=== PATIENT | female | born 1935 | race Two or more races ===

== ENCOUNTER 2019-07-04 21:36 | Inpatient (IN) | payer MEDICARE ==
[~2019-07-04] VITALS: Ht 152.4 cm; Wt 76.9 kg
--- NOTE | 2019-07-04 23:45 | NUR ---
ADMISSION NOTE PATIENT ARRIVED VIA TRANSPORT FROM [facility] 139 REPORT RECIEVED FROM MARY EMT. PATIENT ADMITTED TO 317 BED ONE FOR DX SHINGLES MED SURGE STATUS. REPORT RECIEVED AROUND 10 PM FROM YOLANDA MORATAYA FROM [facility]. PATIENT WAS HAVING LEFT FOOT PAIN FOR 3 DAYS AND WAS UNABLE TO AMBULATE SO SHE WAS BROUGHT TO ER BY SON. PT ALERT AND ORIENTED X3. REPORTS SHE HAS SEVERE PAIN TO LEFT FOOT WHEN TRYING MOVING IT BUT WHILE AT REST PAIN/DISCOMFORT IS TOLERABLE. ADMISSION ASSESSMENT STARTED. PATIENT ORIENTED TO ROOM. CALL LIGHT GIVEN PT VERBALIZED UNDERSTANDING TO CALL FOR ASSISTANCE NEEDED. BED DOWN LOCKED SRX2 BED ALARM ACTIVATED. CONTACT AND AIRBORNE PRECAUTIONS IN PLACE FOR SHINGLES PER PROTOCOL. SHINGLES LIKE RASH ONLY SEEN TO LEFT LOWER EXTREMITY PHOTOS TAKEN AND PLACED IN CHART.
[2019-07-05] MEDS ORDERED: SITA1TAB6 PO (00:47)
[2019-07-05] MEDS ORDERED: OMEP40CA13 PO (00:47)
[2019-07-05] MEDS ORDERED: ZOLP5TAB8 PO (00:47)
[2019-07-05] MEDS ORDERED: BENA20TA9 PO (00:47)
[2019-07-05] MEDS ORDERED: LEVO100T9 PO (00:47)
[2019-07-05] MEDS ORDERED: ATOR10TA GT (00:47)
[2019-07-05] MEDS ORDERED: SUCR1TAB PO (00:47)
[2019-07-05] MEDS ORDERED: ZOLPIDEM TARTRATE 5 MG TABLET PO PRN ×2 (01:00→06:00)
[2019-07-05] MEDS ORDERED: ONDANSETRON HCL/PF 4 MG/2 ML VIAL IVP PRN (01:00)
[2019-07-05] MEDS ORDERED: ACETAMINOPHEN 325 MG TABLET PO PRN (01:00)
[2019-07-05] MEDS ORDERED: MAG HYDROX/AL HYDROX/SIMETH 30 ML UDC PO PRN (01:00)
[2019-07-05] MEDS ORDERED: HYDROCODONE/APAP 5/325MG 1 EACH TABLET PO PRN (01:00)
[2019-07-05] MEDS ORDERED: MAGNESIUM HYDROXIDE 30 ML UDC PO PRN (01:00)
[2019-07-05 04:22] VITALS: BP 106/52
[2019-07-05] MEDS: MORPHINE SULFATE INJ 2 MG/ML DISP.SYRIN IV PRN ×2 (04:40→21:17)
[2019-07-05] MEDS: BLOOD SUGAR DIAGNOSTIC 1 EACH STRIP IN SCH ×2 (06:28→17:26)
[2019-07-05] MEDS: LEVOTHYROXINE SODIUM 100 MCG TABLET PO SCH (06:28)
--- NOTE | 2019-07-05 06:43 | NUR ---
rn pm closing note. patient in bed. [id number] revieweed poc. bs this am was 261. bed down locked srx2 isiolation precuations in place airborne and contact for shingles. tyelonol administered as ordered for pain in left foot rated 3/10. pt states "the pain it just comes suddenly someitimes when i move. will endorse to day shift for cont of care.
[2019-07-05] MEDS ORDERED: Medication Not On Formulary EA (Sitagliptin Phos/Metformin Hcl (Janumet 50-1,000 Mg Tabl PO SCH (07:30)
[2019-07-05 07:54] LABS: BASOPHILS % (AUTO) 0.6 % (0.0-2.0); EOSINOPHILS % (AUTO) 1.6 % (0.0-6.0); HEMATOCRIT 37 % (33-45); HEMOGLOBIN 12.5 g/dL (11.5-14.8); LYMPHOCYTES # (AUTO) 0.8 /CMM (0.8-4.8); LYMPHOCYTES % (AUTO) 15.2 % (20.0-44.0); MEAN CORPUSCULAR HGB CONC 34 g/dl (31.0-36.0); MEAN CORPUSCULAR VOLUME 100 fL (82-100); MONOCYTES # (AUTO) 0.7 /CMM (0.1-1.30); MONOCYTES % (AUTO) 14.7 % (2.0-12.0); NEUTROPHILS # (AUTO) 3.4 /CMM (1.8-8.9); NEUTROPHILS % (AUTO) 67.9 % (43.0-81.0); PLATELET COUNT (AUTO) 125 /CMM (150-450); RED BLOOD CELL COUNT(AUTO) 3.73 MIL/uL (4.0-5.2)
[2019-07-05 08:00] VITALS: BP 111/64
--- NOTE | 2019-07-05 08:00 | NUR ---
MS RN OPENING NOTE RECEIVED PT AWAKE, ALER AND ORIENTED X4. PLEASANT FEMALE. ON ISOLATION FOR DX SHINGLES PT ALERT AND ORIENTED X3. NO CARDIAC OR RESPIRATORY DISTRESS NOTED. NO COMPLAINTS OF PAIN OR DISCOMFORT AT THIS TIME. NO SOB NOTED. SATURATING WELL ON ROOM AIR. BLISTERS NOTED TO L FOOT. SAFETY PRECAUTIONS IN PLACE. BED DOWN LOCKED NAD IN LOW POSITION. SIDE RAILS UP. BED ALARM ON. WILL CONT TO MONITOR
[2019-07-05 08:15] LABS: ALANINE AMINOTRANSFERASE 31 U/L (12-78); ALBUMIN 3.1 g/dL (3.4-5.0); ALKALINE PHOSPHATASE 68 U/L (46-116); ASPARTATE AMINOTRANSFERASE 42 U/L (15-37); BILIRUBIN,DIRECT 0.2 mg/dL (0.0-0.2); BILIRUBIN,TOTAL 0.6 mg/dL (0.2-1.0); CALCIUM, SERUM 8.1 mg/dL (8.5-10.1); CARBON DIOXIDE 23 mmol/L (21-32); CHLORIDE 102 mmol/L (98-107); CREATININE 2.3 mg/dL (0.6-1.3); GLUCOSE 242 mg/dL (74-106); PHOSPHORUS 5.6 mg/dL (2.5-4.9); POTASSIUM 4.6 mmol/L (3.5-5.1); SODIUM SERUM 135 mmol/L (136-145); TOTAL PROTEIN, SERUM 6.2 g/dL (6.4-8.2); UREA NITROGEN, BLOOD 35 mg/dL (7-18)
[2019-07-05 08:26] LABS: CHOLESTEROL 141 mg/dL (<200); HDL CHOLESTEROL 47 mg/dL (40-60); LDL 69 mg/dL (0-99); THYROID STIMULATING HORMONE 5.776 uIU/mL (0.358-3.74); TRIGLYCERIDES 156 mg/dL (30-150)
[2019-07-05 08:30] LABS: APPEARANCE,URINE CLOUDY (CLEAR); BILIRUBIN,URINE NEGATIVE (NEGATIVE); BLOOD, URINE TRACE-INTA Ery/uL (NEGATIVE); COLOR,URINE YELLOW (YELLOW); KETONES,URINE NEGATIVE (NEGATIVE); LEUKOCYTE ESTERASE ,URINE MODERATE (NEGATIVE); NITRITE, URINE NEGATIVE (NEGATIVE); PH,URINE 5.5 (5.0-8.0); PROTEIN,URINE 100 mg/dl (NEGATIVE); UGLUCOSE 100 MG/DL mg/dL (NEGATIVE); UROBILINOGEN,URINE 0.2 EU/dL (0.2)
[2019-07-05 08:38] LABS: BACTERIA,URINE Few /HPF (None Seen); SQUAMOUS EPITHELIAL CELL,UR Few /HPF (None Seen); WBC,URINE TOO NUMEROUS TO COUN /HPF (0-3)
[2019-07-05] MEDS: BENAZEPRIL HCL 20 MG TABLET PO SCH (08:55)
[2019-07-05] MEDS: ACYCLOVIR 800 MG TABLET PO SCH ×2 (08:55→17:26)
[2019-07-05] MEDS: SUCRALFATE 1 G TABLET PO SCH ×4 (08:55→20:24)
[2019-07-05] MEDS: PANTOPRAZOLE 40 MG TABLET.DR PO SCH ×2 (08:55→17:26)
[2019-07-05] MEDS: LINAGLIPTIN 5 MG TABLET PO SCH (09:16)
[2019-07-05] MEDS: METFORMIN 500 MG TABLET PO SCH ×2 (09:27→17:26)
--- NOTE | 2019-07-05 10:36 | NUR ---
WOUND CARE CONSULT WOUND CARE RECEIVED CONSULT FOR SHINGLES. WOUND CARE WILL DEFER TREATMENT PLAN TO PRIMARY MD WITH WOUND CARE ASSIST IF REQUESTED. PATIENT WITH AMADEO AT 19, WILL SEE PRN.
[2019-07-05] MEDS: ATORVASTATIN 10 MG TABLET GT SCH (17:26)
--- NOTE | 2019-07-05 19:30 | NUR ---
MS RN CLOSING NOTES PT IN BED AWAKE, ALERT AND ORIENTED X4. PLEASANT FEMALE. ON ISOLATION FOR DX SHINGLES NO CARDIAC OR RESPIRATORY DISTRESS NOTED. NO COMPLAINTS OF PAIN OR DISCOMFORT AT THIS TIME. NO SOB NOTED. SATURATING WELL ON ROOM AIR. BLISTERS NOTED TO L FOOT. SAFETY PRECAUTIONS IN PLACE. BED DOWN LOCKED NAD IN LOW POSITION. SIDE RAILS UP. BED ALARM ON.
--- NOTE | 2019-07-05 19:43 | NUR ---
MS RN NOTES PATIENT IN BED, AWAKE, ALERT AND ORIENTED X3. BREATHING EVEN AND UNLABORED ON ROOM AIR. SHOWS NO SIGNS OF ACUTE RESPIRATORY DISTRESS, NO ACUTE PAIN. IV ON RAC #22G AND R WRIST #20G IS CLEAN DRY AND INTACT. SHOWS NO SIGNS OF INFILTRATION, NO REDNESS. SAFETY PRECAUTIONS IN PLACE. BED IN LOWEST POSITION, LOCKED, AND CALL LIGHT KEPT WITHIN REACH.
[2019-07-05 20:00] VITALS: BP 119/58
--- NOTE | 2019-07-05 20:08 | NUR ---
Met with patient at bedside. She is alert and pleasant. Patient resides locally with her son in the first floor apartment. She uses a cane with ambulation outside household. States she is independent with adl's and still driving. She plan to return home and requested homehealth for PT. Her son Migue [phone] will provide ride upon discharge. Addendum: 07/05/19 at 2007 by TYLER GANNON RN Amended: Links added.
--- NOTE | 2019-07-05 23:12 | NUR ---
MS RN NOTES PATIENT COMPLAINING OF PAIN 9/10 GIVEN PRN MORPHINE. WILL CONTINUE TO MONITOR.
[2019-07-06 06:15] LABS: BASOPHILS % (AUTO) 0.6 % (0.0-2.0); EOSINOPHILS % (AUTO) 1.9 % (0.0-6.0); HEMATOCRIT 36 % (33-45); LYMPHOCYTES # (AUTO) 0.7 /CMM (0.8-4.8); LYMPHOCYTES % (AUTO) 12.4 % (20.0-44.0); MEAN CORPUSCULAR HGB CONC 33 g/dl (31.0-36.0); MEAN CORPUSCULAR VOLUME 100 fL (82-100); MONOCYTES # (AUTO) 0.6 /CMM (0.1-1.30); MONOCYTES % (AUTO) 11.5 % (2.0-12.0); NEUTROPHILS # (AUTO) 3.8 /CMM (1.8-8.9); NEUTROPHILS % (AUTO) 73.6 % (43.0-81.0); PLATELET COUNT (AUTO) 120 /CMM (150-450); RED BLOOD CELL COUNT(AUTO) 3.59 MIL/uL (4.0-5.2); WHITE BLOOD COUNT (AUTO) 5.2 K/uL (4.3-11.0)
[2019-07-06] MEDS: LEVOTHYROXINE SODIUM 100 MCG TABLET PO SCH (06:29)
--- NOTE | 2019-07-06 06:30 | NUR ---
MS RN NOTES PATIENT IN BED, ASLEEP, EASILY AROUSED, ALERT AND ORIENTED X3. BREATHING EVEN AND UNLABORED ON ROOM AIR. SHOWS NO SIGNS OF ACUTE RESPIRATORY DISTRESS, NO ACUTE PAIN. IV ON RAC #22G AND R WRIST #20G IS CLEAN DRY AND INTACT. SHOWS NO SIGNS OF INFILTRATION, NO REDNESS. ALL DUE MEDICATIONS GIVEN. SAFETY PRECAUTIONS IN PLACE. BED IN LOWEST POSITION, LOCKED, AND CALL LIGHT KEPT WITHIN REACH. WILL ENDORSE TO ONCOMING NURSE.
[2019-07-06] MEDS: BLOOD SUGAR DIAGNOSTIC 1 EACH STRIP IN SCH ×2 (06:36→17:18)
[2019-07-06] MEDS: MORPHINE SULFATE INJ 2 MG/ML DISP.SYRIN IV PRN (06:36)
[2019-07-06 06:42] LABS: ALANINE AMINOTRANSFERASE 34 U/L (12-78); ALBUMIN 2.9 g/dL (3.4-5.0); ALKALINE PHOSPHATASE 67 U/L (46-116); ASPARTATE AMINOTRANSFERASE 41 U/L (15-37); BILIRUBIN,TOTAL 0.7 mg/dL (0.2-1.0); CALCIUM, SERUM 8.3 mg/dL (8.5-10.1); CARBON DIOXIDE 22 mmol/L (21-32); CHLORIDE 99 mmol/L (98-107); GLUCOSE 183 mg/dL (74-106); MAGNESIUM 1.9 mg/dL (1.8-2.4); PHOSPHORUS 3.7 mg/dL (2.5-4.9); POTASSIUM 4.4 mmol/L (3.5-5.1); SODIUM SERUM 132 mmol/L (136-145); TOTAL PROTEIN, SERUM 6.1 g/dL (6.4-8.2); UREA NITROGEN, BLOOD 39 mg/dL (7-18)
--- NOTE | 2019-07-06 06:50 | NUR ---
MS RN NOTES PATIENT COMPLAINING OF PAIN 8/10 GIVEN MORPHINE PRN. WILL CONTINUE TO MONITOR.
[2019-07-06 06:52] LABS: CREATINE KINASE, TOTAL 68 U/L (26-192)
[2019-07-06] MEDS: ACYCLOVIR 800 MG TABLET PO SCH (08:00)
--- NOTE | 2019-07-06 08:00 | NUR ---
MS RN OPENING NOTE RECEIVED PT AWAKE, ALERT AND ORIENTED X4. PLEASANT FEMALE. PT IS STILL ON CONTACT ISOLATION FOR DX SHINGLES . NO CARDIAC OR RESPIRATORY DISTRESS NOTED. NO SOB NOTED. SATURATING WELL ON ROOM. PT HAS NO COMPLAINTS OF PAIN OR DISCOMFORT AT THIS TIME. SHINGLE BLISTERS NOTED TO L FOOT, APPEARS TO BR DRYING UP. SAFETY PRECAUTIONS ARE IN PLACE. BED LOCKED AND IN LOW POSITION. SIDE RAILS UP. BED ALARM ON. PER PT SHE IS ABLE TO AMBULATE HOWEVER, EVER SINCE SHE STARTED TO HAVE THE BLISTERS ON HER FOOT, IT BECAME INCREASINGLY HARD FOR HER TO WALK. REMINDED PT TO ALWAYS UTILIZE CALL LIGHT AND ASK FOR ASSISTANCE FROM NURSING STAFF IF SHE NEEDS TO GET UP FROM THE BED OR IF SHE NEEDS TO GO TO THE BATHROOM.
[2019-07-06 08:16] VITALS: BP 112/62
[2019-07-06] MEDS: METFORMIN 500 MG TABLET PO SCH ×2 (09:29→17:18)
[2019-07-06] MEDS: LINAGLIPTIN 5 MG TABLET PO SCH (09:31)
[2019-07-06] MEDS: BENAZEPRIL HCL 20 MG TABLET PO SCH (09:31)
[2019-07-06] MEDS: PANTOPRAZOLE 40 MG TABLET.DR PO SCH ×2 (09:31→17:18)
[2019-07-06] MEDS: SUCRALFATE 1 G TABLET PO SCH ×4 (09:31→21:40)
[2019-07-06] MEDS: PREGABALIN 25 MG CAPSULE PO SCH ×2 (09:35→17:17)
--- NOTE | 2019-07-06 10:00 | NUR ---
SEEN BY DR FORDE PT SEEN BY DR FORDE TODAY. MD ORDERED TO CHANGE PO ACYCLOVIR TO PO.
[2019-07-06] MEDS: ACYCLOVIR IV 800 MG in IV D5W 100 ML IV SCH ×2 (10:21→21:40)
[2019-07-06 11:32] LABS: APPEARANCE,URINE SL CLOUDY (CLEAR); BILIRUBIN,URINE NEGATIVE (NEGATIVE); BLOOD, URINE SMALL Ery/uL (NEGATIVE); COLOR,URINE DARK YELLO (YELLOW); KETONES,URINE NEGATIVE (NEGATIVE); LEUKOCYTE ESTERASE ,URINE SMALL (NEGATIVE); NITRITE, URINE NEGATIVE (NEGATIVE); PROTEIN,URINE 30 mg/dl (NEGATIVE); UGLUCOSE 100 MG/DL mg/dL (NEGATIVE); UROBILINOGEN,URINE 0.2 EU/dL (0.2)
[2019-07-06 12:07] LABS: BACTERIA,URINE Few /HPF (None Seen); MUCUS,URINE Few /LPF (None Seen); SQUAMOUS EPITHELIAL CELL,UR 0-2 /HPF (None Seen); URINE AMORPHOUS URATE Few /HPF (None Seen)
[2019-07-06 12:37] LABS: CREATININE, URINE 175.8 MG/DL (30.0-125.0); URINE TOTAL PROTEIN 85.1 mg/dL (0-11.9)
[2019-07-06 16:08] VITALS: BP 112/52
[2019-07-06] MEDS: ATORVASTATIN 10 MG TABLET GT SCH (17:17)
--- NOTE | 2019-07-06 17:57 | NUR ---
MS RN CLOSING NOTE PT IN BED, AWAKE, ALERT AND ORIENTED X4. SHE IS COOPERATIVE AND PLEASANT. CURRENTLY EATING DINNER. SHE STATES THAT SHE LIKES THE FOOD HERE. PT IS STILL ON CONTACT ISOLATION FOR DX SHINGLES. HER ACYCLOVIR WAS CHANGED FROM PO TO IV BY DR FORDE TODAY. NO CARDIAC OR RESPIRATORY DISTRESS NOTED. NO SOB NOTED. SATURATING WELL ON ROOM AIR. PT HAS NO COMPLAINTS OF PAIN OR DISCOMFORT AT THIS TIME. PT ALSO WALKED WITH PT TODAY IN THE ROOM WITH USE OF FWW. SAFETY PRECAUTIONS ARE IN PLACE. BED LOCKED AND IN LOW POSITION. SIDE RAILS UP. BED ALARM ON. REMINDED PT TO ALWAYS UTILIZE CALL LIGHT AND ASK FOR ASSISTANCE FROM NURSING STAFF IF SHE NEEDS TO GET UP FROM THE BED OR IF SHE NEEDS TO GO TO THE BATHROOM. PT AGREED.
[2019-07-06 20:00] VITALS: BP 127/51
[2019-07-06 20:17] VITALS: BP 127/51
--- NOTE | 2019-07-06 20:38 | NUR ---
PERFORATOR OPERATOR: RECEIVED REPORT FROM LOLA MORATAYA AT 1914. P T AWAKE, A/O X3 ON RA RESPIRATIONS EVEN AND UNLABORED. IV ACCESS PATENT AND FLUSHING WELL. PT STARTED ON LYRICA TODAY, ACCORDING TO PT IT HELPED SO MUCH WITH MANAGING HER PAIN. NOTED MICRO REPORT POSITIVE MRSA NARES, RELAYED TO RICCARDO FLAT FOLDING MACHINE OPERATOR/ID AT 193, FLAT FOLDING MACHINE OPERATOR ORDERED BACTROBAN. ALSO CLARIFIED DUE TO PT'S SHINGLES, IS THERE A NEED FOR AIRBORNE ISOLATION-NEGATIVE PRESSURE, PER RICCARDO, BECAUSE BLISTERS ARE NOT OPEN PATIENT CAN BE CONTACT ISOLATION. PPE UTILIZED. DISCUSSED PLAN OF CARE TO PT AND FAMILY. SAFETY PRECAUTIONS FOR FALL INITIATED, CALL LIGHT IN REACH, WILL CONTINUE MONITORING PT.
--- NOTE | 2019-07-06 20:40 | NUR ---
RN NOTES: ISOLATION- AIRBORNE AND CONTACT FOR SHINGLES
[2019-07-06] MEDS: MUPIROCIN OINT 2% 22 GM TUBE SCH (21:40)
--- NOTE | 2019-07-07 03:39 | NUR ---
RN NOTES: ASSISTED PT TO BATHROOM, PT AMBULATE WITH 2 PERSON ASSIST. VOIDED FREELY.
[2019-07-07] MEDS: LEVOTHYROXINE SODIUM 100 MCG TABLET PO SCH (06:14)
--- NOTE | 2019-07-07 06:25 | NUR ---
end of shift report: pt sleeping, appears calm and comfortable, respirations even and unlabored. was started on Bactroban last night for positive mrsa nares. all due meds administered. iv access remains patent and flushing well, on hl, no s/s of iv infiltration noted. ppe utilized for isolation. per id to continue with antiviral drug for shingles. vs remains stable, needs attended. safety precautions for fall remains engaged, call light in reach, will endorse to day rn for continuity of care.
[2019-07-07 07:01] LABS: BASOPHILS % (AUTO) 0.5 % (0.0-2.0); EOSINOPHILS % (AUTO) 1.9 % (0.0-6.0); HEMATOCRIT 33 % (33-45); HEMOGLOBIN 11.3 g/dL (11.5-14.8); LYMPHOCYTES # (AUTO) 0.6 /CMM (0.8-4.8); LYMPHOCYTES % (AUTO) 13.9 % (20.0-44.0); MEAN CORPUSCULAR HGB CONC 34 g/dl (31.0-36.0); MEAN CORPUSCULAR VOLUME 100 fL (82-100); MONOCYTES # (AUTO) 0.6 /CMM (0.1-1.30); MONOCYTES % (AUTO) 13.3 % (2.0-12.0); NEUTROPHILS # (AUTO) 3.1 /CMM (1.8-8.9); NEUTROPHILS % (AUTO) 70.4 % (43.0-81.0); PLATELET COUNT (AUTO) 112 /CMM (150-450); RED BLOOD CELL COUNT(AUTO) 3.31 MIL/uL (4.0-5.2); WHITE BLOOD COUNT (AUTO) 4.4 K/uL (4.3-11.0)
[2019-07-07 07:20] LABS: CALCIUM, SERUM 8.1 mg/dL (8.5-10.1); CARBON DIOXIDE 23 mmol/L (21-32); CHLORIDE 101 mmol/L (98-107); CREATININE 1.8 mg/dL (0.6-1.3); GLUCOSE 146 mg/dL (74-106); POTASSIUM 4.1 mmol/L (3.5-5.1); SODIUM SERUM 133 mmol/L (136-145); UREA NITROGEN, BLOOD 36 mg/dL (7-18)
[2019-07-07 08:00] VITALS: BP 115/58
--- NOTE | 2019-07-07 08:00 | NUR ---
MS RN OPENING NOTE RECEIVED PT AWAKE, ALERT AND ORIENTED X4. PLEASANT FEMALE. PT IS STILL ON CONTACT ISOLATION FOR DX SHINGLES. NO CARDIAC OR RESPIRATORY DISTRESS NOTED. NO SOB NOTED. SATURATING WELL ON ROOM. PT HAS NO COMPLAINTS OF PAIN OR DISCOMFORT AT THIS TIME. SHINGLE BLISTERS NOTED TO L FOOT, APPEARS TO BR DRYING UP. SAFETY PRECAUTIONS ARE IN PLACE. BED LOCKED AND IN LOW POSITION. SIDE RAILS UP. BED ALARM ON. PER PT SHE IS ABLE TO AMBULATE HOWEVER, EVER SINCE SHE STARTED TO HAVE THE BLISTERS ON HER FOOT, WILL CONTINUE TO MONITOR.
[2019-07-07] MEDS: BLOOD SUGAR DIAGNOSTIC 1 EACH STRIP IN SCH ×2 (08:24→17:02)
[2019-07-07] MEDS: METFORMIN 500 MG TABLET PO SCH (08:25)
[2019-07-07] MEDS: PREGABALIN 25 MG CAPSULE PO SCH ×3 (08:26→17:04)
[2019-07-07] MEDS: SUCRALFATE 1 G TABLET PO SCH ×4 (08:26→21:04)
[2019-07-07] MEDS: PANTOPRAZOLE 40 MG TABLET.DR PO SCH ×2 (08:26→17:04)
[2019-07-07] MEDS: LINAGLIPTIN 5 MG TABLET PO SCH (08:27)
[2019-07-07] MEDS: BENAZEPRIL HCL 20 MG TABLET PO SCH (08:27)
[2019-07-07] MEDS: ACYCLOVIR IV 800 MG in IV D5W 100 ML IV SCH ×2 (09:25→21:04)
[2019-07-07] MEDS: MUPIROCIN OINT 2% 22 GM TUBE SCH ×2 (09:39→21:05)
[2019-07-07 10:07] LABS: PTH, INTACT 26 pg/mL (15-65)
[2019-07-07 14:35] LABS: EOSINOPHIL,URINE Rare
[2019-07-07] MEDS ORDERED: ACYCLOVIR 5% CREAM 5 GM TUBE TP SCH (15:00)
[2019-07-07 16:00] VITALS: BP 123/58
[2019-07-07] MEDS: ATORVASTATIN 10 MG TABLET GT SCH (17:04)
[2019-07-07] MEDS: SILVER SULFADIAZINE CREAM 25 GM TUBE TP SCH ×2 (17:04→17:08)
--- NOTE | 2019-07-07 19:30 | NUR ---
MS RN CLOSING NOTE PT IN BED, AWAKE, ALERT AND ORIENTED X4. SHE IS COOPERATIVE AND PLEASANT. NO CARDIAC OR RESPIRATORY DISTRESS NOTED. NO SOB NOTED. SATURATING WELL ON ROOM AIR. PT HAS NO COMPLAINTS OF PAIN OR DISCOMFORT AT THIS TIME.SAFETY PRECAUTIONS ARE IN PLACE. BED LOCKED AND IN LOW POSITION. SIDE RAILS UP. BED ALARM ON. PATIENT WITH BEDSIDE COMMODE. WILL CONTINUE TO MONITOR.
--- NOTE | 2019-07-07 19:30 | NUR ---
BROADBAND INSTALLER: RECEIVED REPORT FROM MG MORATAYA AT 1900. PT AWAKE, A/O X3 ON RA RESPIRATIONS EVEN AND UNLABORED. IV ACCESS PATENT AND FLUSHING WELL. PT ON CONTACT ISOLATION. PPE UTILIZED. DISCUSSED PLAN OF CARE TO PT . SAFETY PRECAUTIONS FOR FALL INITIATED, CALL LIGHT IN REACH, WILL CONTINUE MONITORING PT.
[2019-07-07 20:00] VITALS: BP 146/63
[2019-07-08] MEDS: LEVOTHYROXINE SODIUM 100 MCG TABLET PO SCH (05:24)
[2019-07-08 06:20] LABS: BASOPHILS % (AUTO) 0.5 % (0.0-2.0); EOSINOPHILS % (AUTO) 2.3 % (0.0-6.0); HEMATOCRIT 33 % (33-45); HEMOGLOBIN 11.4 g/dL (11.5-14.8); LYMPHOCYTES # (AUTO) 0.6 /CMM (0.8-4.8); LYMPHOCYTES % (AUTO) 15.6 % (20.0-44.0); MEAN CORPUSCULAR HGB CONC 35 g/dl (31.0-36.0); MEAN CORPUSCULAR VOLUME 99 fL (82-100); MONOCYTES # (AUTO) 0.5 /CMM (0.1-1.30); MONOCYTES % (AUTO) 14.3 % (2.0-12.0); NEUTROPHILS # (AUTO) 2.5 /CMM (1.8-8.9); NEUTROPHILS % (AUTO) 67.3 % (43.0-81.0); PLATELET COUNT (AUTO) 106 /CMM (150-450); RED BLOOD CELL COUNT(AUTO) 3.35 MIL/uL (4.0-5.2); WHITE BLOOD COUNT (AUTO) 3.7 K/uL (4.3-11.0)
--- NOTE | 2019-07-08 06:28 | NUR ---
end of shift report: pt awake,claimed her pain is well managed by lyrica. pt applied cream on her rashes. all due meds administered. iv access remains patent and flushing well, on hl, no s/s of iv infiltration noted. prn milk of magnesia administered per pt request for c/o constipation. awaiting social service consult to help with paying hospital bills. vs remains stable, needs attended. safety precautions for fall remains engaged, call light in reach, will endorse to day rn for continuity of care.
[2019-07-08 06:44] LABS: ALANINE AMINOTRANSFERASE 35 U/L (12-78); ALBUMIN 2.7 g/dL (3.4-5.0); ALKALINE PHOSPHATASE 64 U/L (46-116); ASPARTATE AMINOTRANSFERASE 37 U/L (15-37); BILIRUBIN,TOTAL 0.7 mg/dL (0.2-1.0); CALCIUM, SERUM 8.4 mg/dL (8.5-10.1); CARBON DIOXIDE 26 mmol/L (21-32); CHLORIDE 103 mmol/L (98-107); CREATININE 1.6 mg/dL (0.6-1.3); GLUCOSE 154 mg/dL (74-106); MAGNESIUM 1.9 mg/dL (1.8-2.4); PHOSPHORUS 2.9 mg/dL (2.5-4.9); POTASSIUM 4.5 mmol/L (3.5-5.1); SODIUM SERUM 138 mmol/L (136-145); TOTAL PROTEIN, SERUM 5.9 g/dL (6.4-8.2); UREA NITROGEN, BLOOD 31 mg/dL (7-18)
[2019-07-08] MEDS: BLOOD SUGAR DIAGNOSTIC 1 EACH STRIP IN SCH ×2 (07:30→16:56)
[2019-07-08 08:00] VITALS: BP 144/72
[2019-07-08] MEDS: BENAZEPRIL HCL 20 MG TABLET PO SCH (08:45)
[2019-07-08] MEDS: SUCRALFATE 1 G TABLET PO SCH ×4 (08:45→21:55)
[2019-07-08] MEDS: PANTOPRAZOLE 40 MG TABLET.DR PO SCH ×2 (08:45→17:17)
[2019-07-08] MEDS: LINAGLIPTIN 5 MG TABLET PO SCH (08:45)
[2019-07-08] MEDS: PREGABALIN 25 MG CAPSULE PO SCH ×2 (08:46→17:17)
[2019-07-08] MEDS: MUPIROCIN OINT 2% 22 GM TUBE SCH ×2 (09:00→21:57)
[2019-07-08] MEDS: SILVER SULFADIAZINE CREAM 25 GM TUBE TP SCH ×2 (09:00→17:17)
[2019-07-08] MEDS: ACYCLOVIR IV 800 MG in IV D5W 100 ML IV SCH ×2 (10:52→21:55)
--- NOTE | 2019-07-08 12:20 | NUR ---
MS/RN NOTES PATIENT WANT TO TALK TO THE HASHER MACHINE OPERATOR. THE HASHER MACHINE OPERATOR VERBALIZED THAT HE IS COMING.
[2019-07-08 16:38] VITALS: BP 116/58
[2019-07-08] MEDS: ATORVASTATIN 10 MG TABLET GT SCH (17:17)
[2019-07-08 18:00] VITALS: BP 116/58
--- NOTE | 2019-07-08 18:40 | NUR ---
MS/RN CLOSING NOTES PATIENT IS LYING ON THE BED COMFORTABLY. PATIENT IS ALERT AND ORIENTED X 4. PATIENT DENIES PAIN AT THIS TIME. NO RESPIRATORY DISTRESS NOTED. IV SALINE LOCKED AT RIGHT AC 22G, RIGHT WRIST 20G PATENT AND INTACT. SEEN AND EXAMINED BY MD WITH ORDERS MADE AND CARRIED OUT. KEPT PATIENT CLEAN AND DRY. SAFETY PRECAUTION IN PLACED. BED IN LOWEST POSITION. SIDE RAILS UP X2. WILL ENDORSED TO RIPRAP PLACER FOR LEANDER.
--- NOTE | 2019-07-08 19:45 | NUR ---
GLASSWARE VERIFIER: RECEIVED REPORT FROM MG MORATAYA AT 1905. PT REMAINS ON CONTACT ISOLATION FOR SHINGLES. PPE UTILIZED. PT AWAKE, A/O X3 ON RA RESPIRATIONS EVEN AND UNLABORED. IV ACCESS PATENT AND FLUSHING WELL, ON HL.PT DENIES ANY PAIN OR DISCOMFORT AT THIS TIME. DISCUSSED PLAN OF CARE TO PT . SAFETY PRECAUTIONS FOR FALL INITIATED, CALL LIGHT IN REACH, WILL CONTINUE MONITORING PT.
[2019-07-08 20:00] VITALS: BP 112/51
[2019-07-09 06:21] LABS: BASOPHILS % (AUTO) 0.9 % (0.0-2.0); EOSINOPHILS % (AUTO) 3.1 % (0.0-6.0); HEMATOCRIT 33 % (33-45); HEMOGLOBIN 11.2 g/dL (11.5-14.8); LYMPHOCYTES # (AUTO) 0.6 /CMM (0.8-4.8); MEAN CORPUSCULAR HGB CONC 34 g/dl (31.0-36.0); MEAN CORPUSCULAR VOLUME 100 fL (82-100); MONOCYTES # (AUTO) 0.5 /CMM (0.1-1.30); MONOCYTES % (AUTO) 15.3 % (2.0-12.0); NEUTROPHILS # (AUTO) 1.9 /CMM (1.8-8.9); NEUTROPHILS % (AUTO) 62.7 % (43.0-81.0); PLATELET COUNT (AUTO) 110 /CMM (150-450); RED BLOOD CELL COUNT(AUTO) 3.28 MIL/uL (4.0-5.2); WHITE BLOOD COUNT (AUTO) 3.1 K/uL (4.3-11.0)
[2019-07-09] MEDS: LEVOTHYROXINE SODIUM 100 MCG TABLET PO SCH (06:24)
[2019-07-09 06:31] LABS: ALANINE AMINOTRANSFERASE 26 U/L (12-78); ALBUMIN 2.7 g/dL (3.4-5.0); ALKALINE PHOSPHATASE 70 U/L (46-116); ASPARTATE AMINOTRANSFERASE 29 U/L (15-37); BILIRUBIN,TOTAL 0.7 mg/dL (0.2-1.0); CALCIUM, SERUM 8.3 mg/dL (8.5-10.1); CARBON DIOXIDE 25 mmol/L (21-32); CHLORIDE 105 mmol/L (98-107); CREATININE 1.5 mg/dL (0.6-1.3); GLUCOSE 191 mg/dL (74-106); MAGNESIUM 1.7 mg/dL (1.8-2.4); PHOSPHORUS 2.6 mg/dL (2.5-4.9); POTASSIUM 4.3 mmol/L (3.5-5.1); SODIUM SERUM 139 mmol/L (136-145); UREA NITROGEN, BLOOD 27 mg/dL (7-18)
[2019-07-09] MEDS: BLOOD SUGAR DIAGNOSTIC 1 EACH STRIP IN SCH ×2 (06:39→16:30)
--- NOTE | 2019-07-09 06:55 | NUR ---
end of shift report: pt awake, all due meds administered. cream applied on left henry/leg and foot vesicles/rashes . iv access remains patent and flushing well, on hl, no s/s of iv infiltration noted. blood glucose result 187, no insuln coverage as pt has allergy, pt off metformin , dc'd by product development actuary. for dc today to [facility], exit care filled up. vs remains stable, needs attended. safety precautions for fall remains engaged, call light in reach, will endorse to day rn for continuity of care.
--- NOTE | 2019-07-09 07:30 | NUR ---
MS/RN NOTE THE PATIENT IS RECEIVED IN BED. PATIENT IS ALERT AND ORIENTED X4. IN ROOM AIR AND DENIES SOB. RESPIRATION REGULAR AND UNLABORED. PATIENT COMPLIANCES OF LEFT FOOT PAIN 5/10 BUT WANTS TO WAIT FOR MORNING LYRICA. THE PATIENT DOES NOT WANT ANY OTHER PAIN MEDICATION AT THIS TIME. RIGHT WRIST G20 AND LAC G 22 BOTH ARE PATENT AND SALINE LOCKED. BED LOW AND LOCKED. SIDE RAILS UP X3. CALL LIGHT WITHIN REACH. WILL CONTINUE TO MONITOR.
[2019-07-09 08:00] VITALS: BP 155/72
[2019-07-09] MEDS: SUCRALFATE 1 G TABLET PO SCH ×3 (08:22→16:41)
[2019-07-09] MEDS: PREGABALIN 25 MG CAPSULE PO SCH ×2 (08:22→16:41)
[2019-07-09] MEDS: LINAGLIPTIN 5 MG TABLET PO SCH (08:22)
[2019-07-09] MEDS: PANTOPRAZOLE 40 MG TABLET.DR PO SCH ×2 (08:22→16:41)
[2019-07-09 08:23] VITALS: BP 155/72
[2019-07-09] MEDS: BENAZEPRIL HCL 20 MG TABLET PO SCH (08:23)
[2019-07-09] MEDS: SILVER SULFADIAZINE CREAM 25 GM TUBE TP SCH ×2 (08:57→16:42)
[2019-07-09] MEDS: MUPIROCIN OINT 2% 22 GM TUBE SCH (08:57)
[2019-07-09] MEDS ORDERED: Magnesium 1GM/D5W 100ML PREMIX 100 ML IV SCH (09:07)
[2019-07-09] MEDS: ACYCLOVIR IV 800 MG in IV D5W 100 ML IV SCH (10:29)
[2019-07-09 13:06] LABS: *SPE A/G RATIO 1.1 (0.7-1.7); *SPE ALPHA-1-GLOBULIN 0.2 g/dL (0.0-0.4); *SPE ALPHA-2-GLOBULIN 0.8 g/dL (0.4-1.0); *SPE BETA GLOBULIN 0.8 g/dL (0.7-1.3); *SPE GLOBULIN, TOTAL 2.8 g/dL (2.2-3.9); *SPE M-SPIKE Not Observed g/dL (Not Observed)
[2019-07-09] MEDS ORDERED: LINA5TAB PO (13:06)
[2019-07-09] MEDS ORDERED: ACYC800T PO (13:06)
--- NOTE | 2019-07-09 16:31 | NUR ---
/HOOD NOTE 1630 BLOOD SUGAR CHECK IS NOT DONE DUE TO PATIENT BEING IN OR AT THIS TIME. Addendum: 07/09/19 at 1633 by DESIRAE VALENTIN RN WRONG PATIENT ENTRY.
--- NOTE | 2019-07-09 16:38 | NUR ---
MS/RN NOTE BLOOD SUGAR IS 276 NO ORDER FOR COVERAGE. AIRCRAFT ELECTRONICS TECHNICAL OFFICER TEENA IS AWARE.
--- NOTE | 2019-07-09 17:54 | NUR ---
MS/RN NOTE THE PATIENT IS ALERT AND ORIENTED X4. DENIES PAIN. IN ROOM AIR AND DENIES SOB. RESPIRATION REGULAR AND UNLABORED. PATIENT IS GIVEN DISCHARGE EDUCATION AND SHE VERBALIZED UNDERSTANDING. IV LINES REMOVED FROM RIGHT WRIST AND RAC. NO BLEEDING NOTED. PATIENT GOT PICKED UP BY 2 EMT. LEFT THE HOSPITAL IN STABLE CONDITION.
[2019-07-10 14:08] LABS: *PEUR ALBUMIN 62.6 % (.); *PEUR ALPHA-1-GLOBULIN 0.8 % (.); *PEUR ALPHA-2-GLOBULIN 8.8 % (.); *PEUR BETA GLOBULIN 10.3 % (.); *PEUR GAMMA GLOBULIN 17.5 % (.)
== END 2019-07-09 17:50 | DRG 595 ==
LOC: MED 23:31
PROVIDERS: ADMIT Family Medicine; ATTEND Hospitalist
DX: B02.9 Zoster without complications (principal); N17.0 Acute kidney failure with tubular necrosis; E44.0 Moderate protein-calorie malnutrition; E87.1 Hypo-osmolality and hyponatremia; E03.9 Hypothyroidism, unspecified; D69.6 Thrombocytopenia, unspecified; E11.22 Type 2 diabetes mellitus with diabetic chronic kidney disease; E11.65 Type 2 diabetes mellitus with hyperglycemia; E83.39 Other disorders of phosphorus metabolism; E86.1 Hypovolemia; N18.9 Chronic kidney disease, unspecified; Z87.891 Personal history of nicotine dependence; Z87.442 Personal history of urinary calculi; E66.01 Morbid (severe) obesity due to excess calories; Z68.33 Body mass index [BMI] 33.0-33.9, adult; E88.09 Other disorders of plasma-protein metabolism, not elsewhere classified; Z22.322 Carrier or suspected carrier of Methicillin resistant Staphylococcus aureus; Z79.84 Long term (current) use of oral hypoglycemic drugs; I12.9 Hypertensive chronic kidney disease with stage 1 through stage 4 chronic kidney disease, or unspecified chronic kidney disease; Z82.49 Family history of ischemic heart disease and other diseases of the circulatory system; Z90.710 Acquired absence of both cervix and uterus; E11.69 Type 2 diabetes mellitus with other specified complication
CPT/HCPCS: 36415; 80048-TC; 80053-TC; 80061-TC; 80076-TC; 81000-TC; 82550-TC; 82570-TC; 82962-TC; 83735-TC; 83970; 84100-TC; 84155; 84155-TC; 84156; 84165; 84166; 84300-TC; 84443-TC; 85025-TC; 87081-TC; 87086-TC; 97110-TC; 97112-TC; 97116-TC; 97530-TC; G0378; J0133; J2270; J2405; J3475; J7040; J7060

== ENCOUNTER 2022-01-15 13:02 | Emergency (ER) | payer MEDICARE, OTHER ==
[~2022-01-15] VITALS: Ht 152.4 cm; Wt 78.9 kg
[~2022-01-15 13:02] MED LIST: ACYC-108 PO; ATOR10TA PO; BENA20TA9 PO; LEVO100T9 PO; LINA5TAB PO; OMEP40CA21 PO; SUCR1TAB PO; ZOLP5TAB8 PO
--- NOTE | 2022-01-15 13:04 | NUR ---
[id number] FROM HOME C/O SOB 88RA, CPAP 97% UPON ARRIVAL. PLACED ON BED, AAOX4, DYSNEIC RR-22 ATTACHED TO MONITOR SATURATING AT 98% ON CPAP.
[2022-01-15] MEDS ORDERED: ALBUTEROL FS 2.5 MG/3 ML VIAL.NEB ONE (13:11)
--- NOTE | 2022-01-15 13:25 | NUR ---
BLOOD DRAWNA AND SENT TO LAB
[2022-01-15] MEDS ORDERED: ASPIRIN 325 MG TABLET ONE (13:26)
[2022-01-15] MEDS ORDERED: NITROGLYCERIN 0.4 MG/TAB BOTTLE ONE (13:26)
[2022-01-15] MEDS ORDERED: ALBUTEROL FS 2.5 MG/3 ML VIAL.NEB NEB ONE (13:30)
[2022-01-15] MEDS ORDERED: IPRATROPIUM NEB FS 0.5 MG/2.5 ML AMPUL.NEB NEB ONE (13:30)
[2022-01-15] MEDS ORDERED: NITROGLYCERIN 0.4 MG/TAB BOTTLE SL ONE (13:30)
[2022-01-15] MEDS ORDERED: ASPIRIN 325 MG TABLET PO ONE (13:30)
--- NOTE | 2022-01-15 13:35 | NUR ---
X-RAY TECH AT BED SIDE
--- NOTE | 2022-01-15 13:51 | NUR ---
SWAB FOR COVID19 SENT TO LAB
[2022-01-15 13:56] LABS: CALCIUM, SERUM 9.3 mg/dL (8.5-10.1); CARBON DIOXIDE 22 mmol/L (21-32); CHLORIDE 102 mmol/L (98-107); CREATININE 1.7 mg/dL (0.6-1.3); GLUCOSE 206 mg/dL (74-106); POTASSIUM 4.4 mmol/L (3.5-5.1); SODIUM SERUM 138 mmol/L (136-145); UREA NITROGEN, BLOOD 18 mg/dL (7-18)
[2022-01-15 14:08] LABS: ALANINE AMINOTRANSFERASE 30 U/L (12-78); ALBUMIN 3.5 g/dL (3.4-5.0); ALKALINE PHOSPHATASE 124 U/L (46-116); ASPARTATE AMINOTRANSFERASE 34 U/L (15-37); BILIRUBIN,DIRECT 0.4 mg/dL (0.0-0.2); BILIRUBIN,TOTAL 1.1 mg/dL (0.2-1.0); TOTAL PROTEIN, SERUM 7.3 g/dL (6.4-8.2)
[2022-01-15 14:13] LABS: BASOPHILS % (AUTO) 0.7 % (0.0-2.0); EOSINOPHILS % (AUTO) 1.1 % (0.0-6.0); HEMATOCRIT 37 % (33-45); HEMOGLOBIN 12.1 g/dL (11.5-14.8); LYMPHOCYTES # (AUTO) 0.4 K/uL (0.8-4.8); LYMPHOCYTES % (AUTO) 19.7 % (20.0-44.0); MEAN CORPUSCULAR HGB CONC 33 g/dl (31.0-36.0); MEAN CORPUSCULAR VOLUME 106 fL (82-100); MONOCYTES % (AUTO) 2.1 % (2.0-12.0); NEUTROPHILS # (AUTO) 1.5 K/uL (1.8-8.9); NEUTROPHILS % (AUTO) 76.4 % (43.0-81.0); PLATELET COUNT (AUTO) 115 K/uL (150-450); RED BLOOD CELL COUNT(AUTO) 3.49 MIL/uL (4.0-5.2)
[2022-01-15] MEDS ORDERED: GABA600T12 PO (14:16)
[2022-01-15] MEDS ORDERED: GLIM2TAB31 PO (14:16)
[2022-01-15] MEDS ORDERED: FUROSEMIDE 40 MG/4 ML VIAL IV ONE (15:00)
--- NOTE | 2022-01-15 15:00 | NUR ---
PATIENT INTENTIONALLY PULLED OUT HER IV CANULA AND WANTS TO GO HOME
[2022-01-15] MEDS ORDERED: FUROSEMIDE 40 MG/4 ML VIAL ONE (15:41)
[2022-01-15 16:14] LABS: BAND % (MANUAL) 7 % (0.0-5.0); EOSINOPHILS % (MANUAL) 1 % (0-4); LYMPHOCYTES % (MANUAL) 21 % (16-48); MONOCYTES % (MANUAL) 3 % (0-11.0); NEUTROPHILS % (MANUAL) 68 (42-76)
--- NOTE | 2022-01-15 18:33 | NUR ---
REGCHEN CHASSIS MECHANIC [phone]
--- NOTE | 2022-01-15 18:42 | NUR ---
MENTAL HEALTH PROGRAM MANAGER NOTIFIED 2ND TROPONIN LEVEL. AWAITING FOR A CALL BACK.
--- NOTE | 2022-01-15 18:55 | NUR ---
FAXED COVID AND NEW TROPONIN RESULTS TO ARMANI DANGELO FAX NUMBER [phone]
[2022-01-15] MEDS ORDERED: ENOXAPARIN SODIUM 80 MG/0.8 ML DISP.SYRIN SQ ONE ×2 (19:00→19:39)
--- NOTE | 2022-01-15 21:30 | NUR ---
ARMANI Meza/Sameer BARBER [facility] ROOM 753 REPORT [phone] WILL CALL US BACK WITH TRANSPORT INFO
--- NOTE | 2022-01-15 21:47 | NUR ---
ETA 30 MIN POT RELINER
--- NOTE | 2022-01-15 22:10 | NUR ---
REPORT GIVEN TO FRANNIE AT [facility]
--- NOTE | 2022-01-15 22:23 | NUR ---
REPORT GIVEN TO [facility] 45 BRAND SALES MANAGER. PT CHART AND TRANSFER FORM PROVIDED. ALL V/S WNL.
[2022-01-15 22:24] VITALS: BP 111/50
--- NOTE | 2022-01-15 22:37 | NUR ---
PT TRANSPORTED TO [facility] IN STABLE CONDITION VIA [facility]
== END 2022-01-15 22:39 | disposition short-term general hospital (02) ==
LOC: ER 13:02
DX: J96.91 Respiratory failure, unspecified with hypoxia (principal); I21.4 Non-ST elevation (NSTEMI) myocardial infarction; N17.9 Acute kidney failure, unspecified; I11.0 Hypertensive heart disease with heart failure; I50.9 Heart failure, unspecified; Z20.822 Contact with and (suspected) exposure to COVID-19; E11.9 Type 2 diabetes mellitus without complications; Z88.8 Allergy status to other drugs, medicaments and biological substances; Z79.84 Long term (current) use of oral hypoglycemic drugs; Z79.899 Other long term (current) drug therapy
CPT/HCPCS: 99291; 93970; 96374; 71045; 87426; 93005 ×2; 85025; 80048; 80076; 85378; 36415; 84484 ×2; 85730; 87081; 83880; 94644; 96372; 85007; J1940; J1650; C9803

== ENCOUNTER 2022-01-18 18:57 | Inpatient (IN) | payer OTHER ==
[~2022-01-18] VITALS: Ht 170.2 cm; Wt 80.7 kg
[~2022-01-18 18:57] MED LIST changes: -ACYC-108 PO; +GABA600T12 PO; +GLIM2TAB31 PO; -LINA5TAB PO; -OMEP40CA21 PO; -SUCR1TAB PO
--- NOTE | 2022-01-18 19:02 | NUR ---
Germán thurman in EDM - 01/18/22 at 205 by SAUD [id number], from home, c/o sob since last night 100% on 4lpm via nc. PT A/ox3. Connected POX and monitor. Safety measures in place.
--- NOTE | 2022-01-18 19:05 | NUR ---
[id number], from home, c/o sob since last night 100% on 4lpm via nc. PT A/ox2. Connected POX and monitor. Safety measures in place.
--- NOTE | 2022-01-18 19:47 | NUR ---
RAC #18G S/L BLOOD AND COVID ANTIGEN SWAB COLLECTED AND SENT TO LAB
[2022-01-18 19:57] LABS: EOSINOPHILS % (AUTO) 0.3 % (0.0-6.0); HEMATOCRIT 33 % (33-45); LYMPHOCYTES # (AUTO) 0.1 K/uL (0.8-4.8); MEAN CORPUSCULAR HGB CONC 34 g/dl (31.0-36.0); MEAN CORPUSCULAR VOLUME 101 fL (82-100); MONOCYTES # (AUTO) 0.1 K/uL (0.1-1.30); MONOCYTES % (AUTO) 3.3 % (2.0-12.0); NEUTROPHILS # (AUTO) 2.5 K/uL (1.8-8.9); NEUTROPHILS % (AUTO) 94.4 % (43.0-81.0); PLATELET COUNT (AUTO) 91 K/uL (150-450); RED BLOOD CELL COUNT(AUTO) 3.24 MIL/uL (4.0-5.2); WHITE BLOOD COUNT (AUTO) 2.7 K/uL (4.3-11.0)
[2022-01-18 20:11] LABS: CALCIUM, SERUM 8.1 mg/dL (8.5-10.1); CARBON DIOXIDE 25 mmol/L (21-32); CHLORIDE 93 mmol/L (98-107); CREATININE 3.1 mg/dL (0.6-1.3); GLUCOSE 219 mg/dL (74-106); POTASSIUM 3.9 mmol/L (3.5-5.1); SODIUM SERUM 131 mmol/L (136-145); UREA NITROGEN, BLOOD 78 mg/dL (7-18)
--- NOTE | 2022-01-18 20:20 | NUR ---
COVID POSITIVE; DR. KOFI FOWLER AWARE
--- NOTE | 2022-01-18 20:21 | NUR ---
TROP 230; DR. KOFI FOWLER AWARE
[2022-01-18 21:00] VITALS: BP 93/46
--- NOTE | 2022-01-18 21:21 | NUR ---
REPORT GIVEN TO HOOD ESTEBAN
--- NOTE | 2022-01-18 21:22 | NUR ---
RN NOTE RECEIVED REPORT FROM PUNCH CARD OPERATORHOOD VEGA
--- NOTE | 2022-01-18 21:54 | NUR ---
PT TRANSFERRED TO 105 VIA ACLS PROTOCOL.VSS. ALL BELONGINGS WITH PT. ON O2 4LPM VIA N/C
[2022-01-18 21:55] LABS: BAND % (MANUAL) 8 % (0.0-5.0); LYMPHOCYTES % (MANUAL) 8 % (16-48); MONOCYTES % (MANUAL) 2 % (0-11.0); NEUTROPHILS % (MANUAL) 82 (42-76)
--- NOTE | 2022-01-18 21:55 | NUR ---
ATTEMPTED TO CALL SIA (SON) [phone] . NOT ABLE TO LEAVE VOICE MESSAGE
[2022-01-18] MEDS ORDERED: NITROGLYCERIN 0.4 MG/TAB BOTTLE SL PRN (22:30)
[2022-01-18] MEDS ORDERED: DEXTROSE 50%-WATER 50 ML DISP.SYRIN IV PRN (22:30)
[2022-01-18] MEDS ORDERED: INSULIN REGULAR, HUMAN 100 UNIT/ML 3 ML VIAL SQ PRN (22:30)
[2022-01-18] MEDS ORDERED: ONDANSETRON HCL/PF 4 MG/2 ML VIAL IVP PRN (22:30)
[2022-01-18] MEDS ORDERED: TEMAZEPAM 15 MG CAPSULE PO PRN (22:30)
[2022-01-18] MEDS ORDERED: Z GUARD REMEDY 4 OZ OINT TP PRN (22:30)
[2022-01-18] MEDS ORDERED: MAGNESIUM HYDROXIDE 30 ML UDC PO PRN (22:30)
[2022-01-18] MEDS ORDERED: MAG HYDROX/AL HYDROX/SIMETH 30 ML UDC PO PRN (22:30)
--- NOTE | 2022-01-18 22:40 | NUR ---
RN NOTE RECEIVED CRITICAL FROM LAB. TROPONIN IS 272, NOTED TO BE TRENDING UP FROM 230. INFORMED JOHANN POON. NO NEW ORDERS AT THIS TIME.
--- NOTE | 2022-01-18 22:50 | NUR ---
RN INITIAL NOTE PT ARRIVED TO UNIT VIA GURNEY, ABLE TO AMBULATE TO BED WITH STANDBY ASSIST. PT WITH ADMITTING DX OF NSTEMI AND SECONDARY DX OF COVID; MEDICAL HX CONSISTING OF HTN, HEART ATTACK, UPPER GI BLEED, DM, OVARIAN CYST REMOVAL, AND HYSTERECTOMY. PT IS A&O X4, CALM, COOPERATIVE. PT REPORTS TO BE VACCINATED AGAINST COVID WITH MODERNA X4 DOSES; NO FLU OR PNEUMONIA VACCINES. PT ON 4L NC WITH 100% O2SAT, NO S/S OF RESP DISTRESS, NO SOB OR COUGH, NON-LABORED AND EQUAL BREATHING. PT ATTACHED TO EXTERNAL MONITOR, ST WITH HR OF 107; NO COMPLAINTS OF CHEST PAIN AT THIS TIME. IV ACCESS ON RAC 18G, INTACT AND PATENT, FLUSHES EASILY WITH NO RESISTANCE; NO FLUIDS/MEDS RUNNING AT THIS TIME. PT NOTED TO HAVE BRUISES ON LEFT FOREARM, ABDOMEN, AND HIP; PT UNABLE TO SAY BED IN LOWEST POSITION, CALL LIGHT WITHIN REACH, SIDE RAILS UP X2. WILL INITIATE PLAN OF CARE. Addendum: 01/19/22 at 0241 by PRINCESS SOSA MORATAYA PT UNABLE TO REMEMBER HOW SHE GOT THE BRUISES. ASKED PT IF SHE HAD A FALL RECENTLY, SHE SAID SHE DID JUST A FEW DAYS AGO; SHE HAD FALLEN BACK, DENIED HITTING HER HEAD.
--- NOTE | 2022-01-18 23:07 | NUR ---
RN NOTE SPOKE TO PT'S SON SIA SILVERMAN AND UPDATED ABOUT PT'S STATUS. PT'S SON ALSO REPORTS THAT THE PT HAD A CORONARY ARTERY STENT PLACED ON Tuesday01/16/22 AT [facility].
[2022-01-18 23:30] LABS: C-REACTIVE PROTEIN 7.2 mg/dL (0.0-0.9)
[2022-01-19] VITALS: BP 102/45
[2022-01-19 04:00] VITALS: BP 94/49
--- NOTE | 2022-01-19 06:07 | NUR ---
QUANTITATIVE RESEARCH ANALYST CLOSING NOTE PT REMAINS IN BED, ASLEEP BUT EASILY AROUSABLE, A&O X3; SLEPT WELL THROUGHOUT THE NIGHT. CONTINUES TO BE ON 4L NC WITH O2SAT RANGING FROM 97%-100%; NO S/S OF RESP DISTRESS, NO COUGH; PT DENIES SOB; NON-LABORED AND EQUAL BREATHING. ATTACHED TO EXTERNAL MONITOR, NOTED TO BE ST DURING BEGINNING OF SHIFT, BUT IS NOW SR WITH HR OF 74. IV RAC 18G INTACT AND PATENT, FLUSHES EASILY WITH NO RESISTANCE; NO MEDS/FLUIDS RUNNING THROUGH IT. BED IN LOWEST POSITION, CALL LIGHT WITHIN REACH, SIDE RAILS UP X2. WILL ENDORSE TO DAYSHIFT NURSE TO CONTINUE CARE.
[2022-01-19 06:13] LABS: EOSINOPHILS % (AUTO) 0.1 % (0.0-6.0); HEMATOCRIT 28 % (33-45); HEMOGLOBIN 9.6 g/dL (11.5-14.8); LYMPHOCYTES # (AUTO) 0.3 K/uL (0.8-4.8); LYMPHOCYTES % (AUTO) 3.2 % (20.0-44.0); MEAN CORPUSCULAR HGB CONC 35 g/dl (31.0-36.0); MEAN CORPUSCULAR VOLUME 101 fL (82-100); MONOCYTES # (AUTO) 1.1 K/uL (0.1-1.30); MONOCYTES % (AUTO) 13.4 % (2.0-12.0); NEUTROPHILS # (AUTO) 6.7 K/uL (1.8-8.9); NEUTROPHILS % (AUTO) 83.3 % (43.0-81.0); PLATELET COUNT (AUTO) 81 K/uL (150-450); RED BLOOD CELL COUNT(AUTO) 2.75 MIL/uL (4.0-5.2); WHITE BLOOD COUNT (AUTO) 8.1 K/uL (4.3-11.0)
[2022-01-19 06:52] LABS: CALCIUM, SERUM 7.8 mg/dL (8.5-10.1); CARBON DIOXIDE 29 mmol/L (21-32); CHLORIDE 94 mmol/L (98-107); CREATININE 3.5 mg/dL (0.6-1.3); GLUCOSE 228 mg/dL (74-106); MAGNESIUM 2.1 mg/dL (1.8-2.4); PHOSPHORUS 4.9 mg/dL (2.5-4.9); SODIUM SERUM 130 mmol/L (136-145)
[2022-01-19 07:10] LABS: CHOLESTEROL 116 mg/dL (<200); HDL CHOLESTEROL 40 mg/dL (40-60); LDL 42 mg/dL (0-99); THYROID STIMULATING HORMONE 0.161 uIU/mL (0.358-3.74); TRIGLYCERIDES 196 mg/dL (30-150)
[2022-01-19 07:14] LABS: UREA NITROGEN, BLOOD 81 mg/dL (7-18)
--- NOTE | 2022-01-19 07:31 | NUR ---
RN OPENING NOTE RECEIVED OT IN BED, ASLEEP BUT EASILY AROUSABLE, A&O X3; ON 4L NC WITH O2SAT RANGING FROM 97%-100%; NO S/S OF RESP DISTRESS, NO COUGH; PT DENIES SOB; NON-LABORED AND EQUAL BREATHING. ATTACHED TO EXTERNAL MONITOR,. IV RAC 18G INTACT AND PATENT, FLUSHES EASILY WITH NO RESISTANCE; NO MEDS/FLUIDS RUNNING THROUGH IT. BED IN LOWEST POSITION, CALL LIGHT WITHIN REACH, SIDE RAILS UP X2.
--- NOTE | 2022-01-19 07:42 | NUR ---
RN NOTE REVIVED CRITICAL TROPONIN 186 VALUE TRENDING DOWN 272 PREVIOUSLY WILL INFORM PROVIDER. BUN 81 PREVIOUSLY 78.
[2022-01-19 08:03] VITALS: BP 111/48
[2022-01-19] MEDS: ASPIRIN 81 MG TAB.CHEW PO SCH (08:11)
[2022-01-19] MEDS: PANTOPRAZOLE 40 MG TABLET.DR PO SCH (08:11)
[2022-01-19] MEDS: BLOOD SUGAR DIAGNOSTIC 1 EACH STRIP IN SCH ×4 (08:12→22:06)
[2022-01-19 08:27] LABS: EOSINOPHILS % (MANUAL) 1 % (0-4); LYMPHOCYTES % (MANUAL) 3 % (16-48); MONOCYTES % (MANUAL) 12 % (0-11.0); NEUTROPHILS % (MANUAL) 84 (42-76)
--- NOTE | 2022-01-19 08:41 | NUR ---
FIXED WING AIRCRAFT FLIGHT ENGINEER/MED RECON SPOKE WITH PATIENT RE: ALLERGY INFORMATION, PER PATIENT SHE DOESN'T HAVE NO MORE ALLERGY TO INSULIN. CALLED AND SPOKE WITH ANDRA (SON) TO CLARIFY RE: HOME MEDICATION INFORMATION AND ALLERGY PER PATIENT REQUESTED. PER SON, HIS MOM HAD A MILD ALLERGIC REACTION LONG TIME AGO FROM INSULIN. PER SON THE PATIENT GOT HOSPITALIZED TO OTHER HOSPITAL WHERE PATIENT WAS PRESCRIBED/GIVEN INSULIN WITH NO ALLERGIC REACTION NOTED. PRIMARY RN AND SO-PHARMACY MADE AWARE.
[2022-01-19] MEDS ORDERED: HYDR-4076 PO (08:50)
[2022-01-19] MEDS ORDERED: TICA90TA PO (08:50)
[2022-01-19] MEDS ORDERED: FURO40TA5 PO (08:50)
[2022-01-19] MEDS ORDERED: ALBU18HF2 IH (08:50)
[2022-01-19] MEDS ORDERED: DULA0.75 SQ (08:50)
[2022-01-19] MEDS ORDERED: CARV3.122 PO (08:50)
[2022-01-19] MEDS ORDERED: HEPARIN SODIUM, PORCINE 5000 UNITS/1 ML VIAL SQ SCH (09:00)
[2022-01-19 10:21] LABS: ABG BASE EXCESS 0.5 mmol/L; ABG OXYGEN SATURATION 94.4 % (92.0-98.5); ABG PCO2 44.5 mmHg (35.0-45.0); ABG PH 7.383 (7.350-7.450); ABG PO2 78.4 mmHg (75.0-100.0); COHb 0.7 % (0.5-1.5); MetHb 0.3 % (0.0-1.5); O2Hb 93.5 % (94.0-97.0); SITE, ABG Right Radial; VENT MODE, BG room air
[2022-01-19 12:00] VITALS: BP 112/53
[2022-01-19] MEDS: INSULIN REGULAR, HUMAN 100 UNIT/ML 3 ML VIAL SQ PRN ×3 (12:18→22:08)
[2022-01-19] MEDS ORDERED: IV NS 0.9% 1,000 ML IV PRN (14:30)
[2022-01-19 16:00] VITALS: BP 115/45
[2022-01-19] MEDS ORDERED: Medication Not On Formulary EA (Gabapentin 600 MG) PO SCH (17:00)
[2022-01-19] MEDS: CARVEDILOL 3.125 MG TABLET PO SCH (17:00)
[2022-01-19] MEDS: hydrALAZINE HCL 25 MG TABLET PO SCH (17:00)
[2022-01-19] MEDS: GABAPENTIN 300 MG CAPSULE PO SCH (17:34)
[2022-01-19] MEDS: TICAGRELOR 90 MG TABLET PO SCH (17:34)
--- NOTE | 2022-01-19 18:58 | NUR ---
CARDBOARD INSERTER CLOSING NOTE PT REMAINS IN BED, ASLEEP BUT EASILY AROUSABLE, A&O X3; SLEPT WELL THROUGHOUT THE NIGHT. CONTINUES TO BE ON 4L NC %; NO S/S OF RESP DISTRESS, NO COUGH; PT DENIES SOB; NON-LABORED AND EQUAL BREATHING. ATTACHED TO EXTERNAL MONITOR, NOTED TO BE ST DURING BEGINNING OF SHIFT, BUT IS NOW SR WITH HR OF 74. IV RAC 18G INTACT AND PATENT, FLUSHES EASILY WITH NO RESISTANCE NS RUNNING 125MLS/HR ; NO MEDS/FLUIDS RUNNING THROUGH IT. BED IN LOWEST POSITION, CALL LIGHT WITHIN REACH, SIDE RAILS UP X2. WILL ENDORSE TO DAYSHIFT NURSE TO CONTINUE CARE.
[2022-01-19 20:00] VITALS: BP 91/33
[2022-01-19] MEDS: ATORVASTATIN 10 MG TABLET PO SCH (21:50)
[2022-01-20] VITALS: BP 111/53
[2022-01-20 04:00] VITALS: BP 125/65
[2022-01-20 05:51] LABS: BASOPHILS % (AUTO) 0.1 % (0.0-2.0); EOSINOPHILS % (AUTO) 0.5 % (0.0-6.0); HEMATOCRIT 32 % (33-45); LYMPHOCYTES # (AUTO) 0.3 K/uL (0.8-4.8); LYMPHOCYTES % (AUTO) 3.2 % (20.0-44.0); MEAN CORPUSCULAR HGB CONC 34 g/dl (31.0-36.0); MEAN CORPUSCULAR VOLUME 102 fL (82-100); MONOCYTES # (AUTO) 1.1 K/uL (0.1-1.30); MONOCYTES % (AUTO) 13.1 % (2.0-12.0); NEUTROPHILS # (AUTO) 7.2 K/uL (1.8-8.9); NEUTROPHILS % (AUTO) 83.1 % (43.0-81.0); PLATELET COUNT (AUTO) 94 K/uL (150-450); RED BLOOD CELL COUNT(AUTO) 3.18 MIL/uL (4.0-5.2); WHITE BLOOD COUNT (AUTO) 8.6 K/uL (4.3-11.0)
[2022-01-20 06:07] LABS: CALCIUM, SERUM 7.9 mg/dL (8.5-10.1); CARBON DIOXIDE 27 mmol/L (21-32); CHLORIDE 94 mmol/L (98-107); CREATININE 3.1 mg/dL (0.6-1.3); GLUCOSE 195 mg/dL (74-106); PHOSPHORUS 3.8 mg/dL (2.5-4.9); POTASSIUM 3.9 mmol/L (3.5-5.1); SODIUM SERUM 130 mmol/L (136-145)
--- NOTE | 2022-01-20 06:11 | NUR ---
RN NOTE RECEIVED CRITICAL FROM LAB, BUN 80. NOTED TO BE TRENDING DOWN, BUN PREVIOUSLY 81.
[2022-01-20 06:12] LABS: UREA NITROGEN, BLOOD 80 mg/dL (7-18)
--- NOTE | 2022-01-20 07:19 | NUR ---
SOFTWARE PROJECT ENGINEER CLOSING NOTE PT REMAINS IN BED, A&O X3, CALM, COOPERATIVE; ASLEEP BUT EASILY AROUSABLE; SLEPT WELL THROUGHOUT THE NIGHT. PT ON 3L NC WITH O2SAT IN THE HIGH 90S; NO S/S OF RESP DISTRESS, NO COUGH; PT DENIES SOB; NON-LABORED AND EQUAL BREATHING; PT NOTED TO HAVE AUDIBLE EXTERNAL WHEEZING. PT ATTACHED TO EXTERNAL MONITOR SR WITH HR BETWEEN 70S-80S. IV ACCESS ON RAC 18G INTACT AND PATENT, FLUSHES EASILY WITH NO RESISTANCE; NS RUNNING AT 125 ML/HR. BED IN LOWEST POSITION, CALL LIGHT WITHIN REACH, SIDE RAILS UP X2. ALL DUE MEDS ADMINISTERED DURING THE NIGHT. WILL ENDORSE TO DAYSHIFT NURSE TO CONTINUE CARE.
--- NOTE | 2022-01-20 07:40 | NUR ---
PROFESSIONAL ATHLETE OPENING NOTE RECEIVED PATIENT SITTING IN BED, RESTING A0X3 ON 3L VIA NC AT 97%, REPORTS NO SOB OR RESPIRATORY DISTRESS. RAC IV #18G INTACT PATIENT, RUNNING NS @125 ML/HR. ON TELEMONITORING CURRENTLY READING SR 77, PATIENT ON CARDIAC. ALL SAFETY FALL PRECAUTIONS IN PLACE, BED LOCK ON, BED ALARM ON, SIDE RAILS UP, BED IN THE LOWEST POSITION, CALL LIGHT WITHIN REACH. WILL CONTINUE TO MONITOR THROUGH OUT THE SHIFT.
[2022-01-20 08:00] VITALS: BP 137/72
[2022-01-20] MEDS: BLOOD SUGAR DIAGNOSTIC 1 EACH STRIP IN SCH ×4 (08:48→21:52)
[2022-01-20] MEDS: LEVOTHYROXINE SODIUM 100 MCG TABLET PO SCH (08:49)
[2022-01-20] MEDS: PANTOPRAZOLE 40 MG TABLET.DR PO SCH (08:49)
[2022-01-20] MEDS: INSULIN REGULAR, HUMAN 100 UNIT/ML 3 ML VIAL SQ PRN ×4 (08:52→21:53)
[2022-01-20] MEDS ORDERED: FUROSEMIDE 40 MG/4 ML VIAL IV SCH (09:00)
[2022-01-20] MEDS: hydrALAZINE HCL 25 MG TABLET PO SCH ×3 (09:00→17:34)
[2022-01-20] MEDS: CARVEDILOL 3.125 MG TABLET PO SCH ×2 (09:00→17:33)
[2022-01-20] MEDS ORDERED: GLIMEPIRIDE 2 MG PO SCH (09:00)
[2022-01-20] MEDS: ASPIRIN 81 MG TAB.CHEW PO SCH (09:55)
[2022-01-20] MEDS: GABAPENTIN 300 MG CAPSULE PO SCH ×2 (09:55→17:33)
[2022-01-20] MEDS: GLIMEPIRIDE 1 MG TABLET PO SCH (09:55)
[2022-01-20] MEDS: TICAGRELOR 90 MG TABLET PO SCH ×2 (09:56→17:34)
[2022-01-20] MEDS: HEPARIN SODIUM, PORCINE 5000 UNITS/1 ML VIAL SQ SCH ×2 (11:03→17:37)
[2022-01-20 11:29] LABS: BASOPHILS % (MANUAL) 0 % (0.0-2.0); EOSINOPHILS % (MANUAL) 1 % (0-4); LYMPHOCYTES % (MANUAL) 4 % (16-48); MONOCYTES % (MANUAL) 11 % (0-11.0); NEUTROPHILS % (MANUAL) 84 (42-76)
[2022-01-20 12:00] VITALS: BP 110/55
[2022-01-20 16:00] VITALS: BP 117/72
[2022-01-20] MEDS: FUROSEMIDE 20 MG/2 ML VIAL IV SCH (17:35)
--- NOTE | 2022-01-20 18:59 | NUR ---
TRAILHEAD MAINTENANCE WORKER CLOSING NOTE PATIENT RESTING IN BED, RESTING A0X3 STABLE ON 3L VIA NC AT 97%, REPORTS NO SOB OR RESPIRATORY DISTRESS. RAC IV #18G SL, INTACT PATIENT. ON TELEMONITORING CURRENTLY READING SR 78, PATIENT ON CARDIAC DIET. ALL PRESCRIBED MEDICATION ADMINISTERED. ALL SAFETY FALL PRECAUTIONS MAINTAINED, BED LOCK ON, BED ALARM ON, SIDE RAILS UP, BED IN THE LOWEST POSITION, CALL LIGHT WITHIN REACH. WILL ENDORSE TO NEXT SHIFT ANY LEANDER.
--- NOTE | 2022-01-20 19:34 | NUR ---
RN OPENING NOTES RECEIVED PT IN BED, ASLEEP, AWAKENS TO VERBAL STIMULI. AOx3. ON NC 3LPM. TELE MONITOR DETECTS SINUS RHYTHM WITH RATE OF 94. IV ACCESS IN RAC #18G. IV IS INTACT, PATENT, AND FLUSHING WELL. SAFETY PRECAUTIONS IN PLACE: BED IN LOWEST, LOCKED POSITION, SIDERAILS UPx2, AND BRAKES ON. TABLE AND CALL LIGHT WITHIN REACH. WILL CONTINUE PLAN OF CARE.
[2022-01-20 20:00] VITALS: BP 108/49
[2022-01-20] MEDS: ATORVASTATIN 10 MG TABLET PO SCH (21:28)
[2022-01-20] MEDS: ACETAMINOPHEN 325 MG TABLET PO PRN (21:28)
--- NOTE | 2022-01-20 22:19 | NUR ---
RN NOTES REASSESSED PATIENT'S TEMPERATURE AND IT WAS 99.5. PLACED ICE BAGS ON PT.
[2022-01-21] VITALS: BP 108/51
[2022-01-21 04:00] VITALS: BP 103/60
--- NOTE | 2022-01-21 06:42 | NUR ---
RN CLOSING NOTES PT IN BED, ASLEEP, AWAKENS TO VERBAL STIMULI. AOx3. ON NC 3LPM AND TOLERATING WELL. TELE MONITOR DETECTS SINUS RHYTHM WITH RATE OF 94. IV ACCESS IN RAC #18G. IV IS INTACT, PATENT, AND FLUSHING WELL. ALL ORDERS CARRIED OUT. ALL NEEDS MET. PT KEPT CLEAN AND DRY. SAFETY PRECAUTIONS IN PLACE: BED IN LOWEST, LOCKED POSITION, SIDERAILS UPx2, AND BRAKES ON. TABLE AND CALL LIGHT WITHIN REACH. WILL ENDORSE TO ONCOMING SHIFT FOR LEANDER.
--- NOTE | 2022-01-21 07:30 | NUR ---
RN OPENING NOTES RECEIVED PT IN BED, ASLEEP. AOx3. ON NC 3LPM. TELE MONITOR DETECTS SINUS RHYTHM WITH RATE OF 95. IV ACCESS IN RAC #18G. IV IS INTACT, PATENT, AND FLUSHING WELL. SAFETY PRECAUTIONS IN PLACE: BED IN LOWEST, LOCKED POSITION, SIDERAILS UPx2, AND BRAKES ON. TABLE AND CALL LIGHT WITHIN REACH. WILL CONTINUE PLAN OF CARE.
[2022-01-21 08:00] VITALS: BP 101/52
[2022-01-21] MEDS: BLOOD SUGAR DIAGNOSTIC 1 EACH STRIP IN SCH ×4 (08:15→21:39)
[2022-01-21] MEDS: ASPIRIN 81 MG TAB.CHEW PO SCH (08:25)
[2022-01-21] MEDS: GABAPENTIN 300 MG CAPSULE PO SCH ×2 (08:25→17:58)
[2022-01-21] MEDS: LEVOTHYROXINE SODIUM 100 MCG TABLET PO SCH (08:26)
[2022-01-21] MEDS: PANTOPRAZOLE 40 MG TABLET.DR PO SCH (08:26)
[2022-01-21] MEDS: GLIMEPIRIDE 1 MG TABLET PO SCH (08:26)
[2022-01-21] MEDS: CARVEDILOL 3.125 MG TABLET PO SCH ×2 (08:26→17:30)
[2022-01-21] MEDS: FUROSEMIDE 20 MG/2 ML VIAL IV SCH (08:28)
[2022-01-21] MEDS ORDERED: IPRATROPIUM NEB FS 0.5 MG/2.5 ML AMPUL.NEB NEB SCH (08:30)
[2022-01-21] MEDS ORDERED: ALBUTEROL FS 2.5 MG/0.5 ML VIAL.NEB NEB SCH (08:30)
[2022-01-21] MEDS: HEPARIN SODIUM, PORCINE 5000 UNITS/1 ML VIAL SQ SCH ×2 (08:32→18:05)
[2022-01-21] MEDS: TICAGRELOR 90 MG TABLET PO SCH ×2 (08:40→18:02)
[2022-01-21] MEDS: INSULIN REGULAR, HUMAN 100 UNIT/ML 3 ML VIAL SQ PRN ×4 (10:00→21:35)
[2022-01-21 10:08] LABS: CALCIUM, SERUM 7.7 mg/dL (8.5-10.1); CARBON DIOXIDE 23 mmol/L (21-32); CHLORIDE 93 mmol/L (98-107); CREATININE 3.2 mg/dL (0.6-1.3); GLUCOSE 282 mg/dL (74-106); POTASSIUM 4.1 mmol/L (3.5-5.1); SODIUM SERUM 126 mmol/L (136-145)
[2022-01-21 10:13] LABS: UREA NITROGEN, BLOOD 85 mg/dL (7-18)
[2022-01-21 10:49] LABS: BASOPHILS % (AUTO) 0.1 % (0.0-2.0); EOSINOPHILS % (AUTO) 0.8 % (0.0-6.0); HEMATOCRIT 28 % (33-45); HEMOGLOBIN 9.4 g/dL (11.5-14.8); LYMPHOCYTES # (AUTO) 0.2 K/uL (0.8-4.8); LYMPHOCYTES % (AUTO) 2.3 % (20.0-44.0); MEAN CORPUSCULAR HGB CONC 33 g/dl (31.0-36.0); MEAN CORPUSCULAR VOLUME 102 fL (82-100); MONOCYTES # (AUTO) 1.1 K/uL (0.1-1.30); MONOCYTES % (AUTO) 15.9 % (2.0-12.0); NEUTROPHILS # (AUTO) 5.6 K/uL (1.8-8.9); NEUTROPHILS % (AUTO) 80.9 % (43.0-81.0); PLATELET COUNT (AUTO) 88 K/uL (150-450); RED BLOOD CELL COUNT(AUTO) 2.77 MIL/uL (4.0-5.2); WHITE BLOOD COUNT (AUTO) 6.9 K/uL (4.3-11.0)
[2022-01-21 11:31] LABS: BASOPHILS % (MANUAL) 0 % (0.0-2.0); EOSINOPHILS % (MANUAL) 1 % (0-4); LYMPHOCYTES % (MANUAL) 3 % (16-48); MONOCYTES % (MANUAL) 14 % (0-11.0); NEUTROPHILS % (MANUAL) 82 (42-76)
[2022-01-21 12:00] VITALS: BP 91/43
--- NOTE | 2022-01-21 14:00 | NUR ---
RN NOTE DR. JARA CANCELED THE PATIENT'S DISCHARGE FOR TODAY DUE TO LOW SEDIUM LEVEL NA+ 126. LASIX 20 MG IV CHANGED TO ONCE A DAY. AND BMP WAS ORDERED FOR TOMORROW MORNING 01/22/2022.
[2022-01-21] MEDS: IPRATROPIUM/ALBUTEROL INHALER IH SCH (14:25)
--- NOTE | 2022-01-21 14:33 | NUR ---
MS RN NOTE REPORTED TO DR JARA CT CHEST RESULT NA BNP ,CREATINE BNP AND HEMOGLOBIN AND HCT , STATED OK TO DISCHARGE TO SNF , CALLED TO HATCHERY WORKER NOTIFIED, STATED THAT WILL CLL FOR FURTHER INSTRUCTION TO TRANSFER TO SNF , WILL F\U
--- NOTE | 2022-01-21 15:19 | NUR ---
MS RN NOTE PER DR JARA HOLD DISCHARGE FOR NOW DO BMP IN AM
[2022-01-21 18:00] VITALS: BP 84/43
--- NOTE | 2022-01-21 18:30 | NUR ---
RN CLOSING NOTES PT IN BED AWAKE, TAKES SOME NAPS BUT AWAKENS TO VERBAL STIMULI. AOx3. ON NC 3LPM AND TOLERATING WELL. TELE MONITOR DETECTS SINUS RHYTHM WITH RATE OF 96. IV ACCESS IN RAC #18G. IV IS INTACT, PATENT, AND FLUSHING WELL. ALL ORDERS CARRIED OUT. ALL NEEDS MET. PT KEPT CLEAN AND DRY. SAFETY PRECAUTIONS IN PLACE: BED IN LOWEST, LOCKED POSITION, SIDERAILS UPx2, AND BRAKES ON. TABLE AND CALL LIGHT WITHIN REACH. 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
--- NOTE | 2022-01-21 19:36 | NUR ---
RN OPENING NOTES RECEIVED PT IN BED WATCHING TV AAOX3 ON 3L O2 VIA NC SHELLI WELL SATTING 97.6%, IV ACCESS IN RAC #18G INTACT, PATENT, AND FLUSHING WELL. SAFETY PRECAUTIONS IN PLACE: BED IN LOWEST, LOCKED POSITION, SIDERAILS UPx2, AND BRAKES ON. TABLE AND CALL LIGHT WITHIN REACH. WILL CONTINUE PLAN OF CARE.
[2022-01-21 20:00] VITALS: BP 84/43
[2022-01-21] MEDS: ATORVASTATIN 10 MG TABLET PO SCH (21:11)
[2022-01-21] MEDS: ACETAMINOPHEN 325 MG TABLET PO PRN (21:11)
[2022-01-22] VITALS: BP 97/56
[2022-01-22 04:00] VITALS: BP 98/59
[2022-01-22 06:20] LABS: CALCIUM, SERUM 7.9 mg/dL (8.5-10.1); CARBON DIOXIDE 26 mmol/L (21-32); CHLORIDE 93 mmol/L (98-107); CREATININE 4.1 mg/dL (0.6-1.3); GLUCOSE 134 mg/dL (74-106); POTASSIUM 3.6 mmol/L (3.5-5.1); SODIUM SERUM 129 mmol/L (136-145); UREA NITROGEN, BLOOD 94 mg/dL (7-18)
--- NOTE | 2022-01-22 06:41 | NUR ---
RN OPENING NOTES; PT IN BED SLEEPING COMFORTABLE WITH HOB ELEVATED,AOX3 ABLE TO VERBALIZE NEEDS,ON 3L O2 VIA NC SHELLI WELL SATTING 98.6%,DUE MEDS GIVEN ORDER,ALL NEEDS ATTENDED, IV ACCESS IN RAC #18G INTACT, PATENT, AND FLUSHING WELL. SAFETY PRECAUTIONS IN PLACE: BED IN LOWEST, LOCKED POSITION, SIDERAILS UPx2, AND BRAKES ON. TABLE AND CALL LIGHT WITHIN REACH. WILL ENDORSED TO NEXT SHIFT.
--- NOTE | 2022-01-22 07:30 | NUR ---
RN Opening Note PT AOx4, states she feels tired. Patient able to express her own concerns, able to use call light. Introduced my self to the patient and made patient aware of plan of care. Patient states no concerns and is waiting for her son to visit her, he will be on the other side of the window. All safety precautions taken, call light and table within reach, bed at lowest position.Will continue to monitor
[2022-01-22 08:00] VITALS: BP 107/57
[2022-01-22] MEDS: PANTOPRAZOLE 40 MG TABLET.DR PO SCH (08:08)
[2022-01-22] MEDS: ASPIRIN 81 MG TAB.CHEW PO SCH (08:08)
[2022-01-22] MEDS: HEPARIN SODIUM, PORCINE 5000 UNITS/1 ML VIAL SQ SCH (08:09)
[2022-01-22] MEDS: GABAPENTIN 300 MG CAPSULE PO SCH ×2 (08:09→17:01)
[2022-01-22] MEDS: GLIMEPIRIDE 1 MG TABLET PO SCH (08:10)
[2022-01-22] MEDS: LEVOTHYROXINE SODIUM 100 MCG TABLET PO SCH (08:10)
[2022-01-22] MEDS: BLOOD SUGAR DIAGNOSTIC 1 EACH STRIP IN SCH ×4 (08:12→21:25)
[2022-01-22] MEDS: TICAGRELOR 90 MG TABLET PO SCH ×2 (08:19→17:01)
[2022-01-22] MEDS ORDERED: IV NS 0.9% 500 ML IV ONE (08:30)
[2022-01-22] MEDS ORDERED: FUROSEMIDE 20 MG/2 ML VIAL IV SCH (09:00)
[2022-01-22 12:00] VITALS: BP 106/52
[2022-01-22] MEDS: INSULIN REGULAR, HUMAN 100 UNIT/ML 3 ML VIAL SQ PRN ×2 (12:35→17:16)
[2022-01-22] MEDS ORDERED: IV NS 0.9% 1,000 ML IV ONE (13:30)
[2022-01-22 16:00] VITALS: BP 100/60
--- NOTE | 2022-01-22 19:33 | NUR ---
RN Closing Notes Patient AOx3, remained stable throughout shift. Patient shows no signs of distress, able to express her own concerns. 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 All safety precautions taken with pt. Remained safe throughout shift. Call light and table within reach, bed at lowest position. Endorsed pt status to PM Nurse.
--- NOTE | 2022-01-22 19:35 | NUR ---
RECEIVED PT RESTING IN BED WITH HOB ELEVATED, AWAKE, AOX3, ABLE TO VERBALIZE NEEDS, ON 3L O2 VIA NC, TOLERATING WELL, SATTING 96%, IV ACCESS IN RAC #18G INTACT, PATENT, AND FLUSHING WELL. SAFETY PRECAUTIONS IN PLACE: BED IN LOWEST, LOCKED POSITION, SIDERAILS UPx2, AND BRAKES ON. BED ALARM ON, TABLE AND CALL LIGHT WITHIN REACH, WILL CONTINUE PLAN OF CARE.
[2022-01-22 20:00] VITALS: BP 97/57
[2022-01-22] MEDS: IPRATROPIUM/ALBUTEROL INHALER IH SCH (21:25)
[2022-01-22] MEDS: ATORVASTATIN 10 MG TABLET PO SCH (21:26)
[2022-01-23 03:43] VITALS: BP 97/57
[2022-01-23 06:26] LABS: BASOPHILS % (AUTO) 0.3 % (0.0-2.0); EOSINOPHILS % (AUTO) 1.6 % (0.0-6.0); HEMATOCRIT 26 % (33-45); HEMOGLOBIN 8.8 g/dL (11.5-14.8); LYMPHOCYTES # (AUTO) 0.3 K/uL (0.8-4.8); LYMPHOCYTES % (AUTO) 4.5 % (20.0-44.0); MEAN CORPUSCULAR HGB CONC 35 g/dl (31.0-36.0); MEAN CORPUSCULAR VOLUME 102 fL (82-100); MONOCYTES # (AUTO) 1.1 K/uL (0.1-1.30); MONOCYTES % (AUTO) 14.9 % (2.0-12.0); NEUTROPHILS # (AUTO) 5.7 K/uL (1.8-8.9); NEUTROPHILS % (AUTO) 78.7 % (43.0-81.0); PLATELET COUNT (AUTO) 109 K/uL (150-450); RED BLOOD CELL COUNT(AUTO) 2.52 MIL/uL (4.0-5.2); WHITE BLOOD COUNT (AUTO) 7.3 K/uL (4.3-11.0)
[2022-01-23 06:33] LABS: CALCIUM, SERUM 7.8 mg/dL (8.5-10.1); CARBON DIOXIDE 25 mmol/L (21-32); CHLORIDE 92 mmol/L (98-107); CREATININE 4.3 mg/dL (0.6-1.3); GLUCOSE 152 mg/dL (74-106); POTASSIUM 3.9 mmol/L (3.5-5.1); SODIUM SERUM 126 mmol/L (136-145)
--- NOTE | 2022-01-23 06:34 | NUR ---
PT RESTING IN BED WITH HOB ELEVATED, AWAKE, AOX3, ABLE TO VERBALIZE NEEDS, ON 3L O2 VIA NC, TOLERATING WELL, SATTING 96%, IV ACCESS IN RAC #18G INTACT, PATENT,INFUSING NS AT 50ML/HR. FC DRAINING CLEAR YELLOW URINE. SAFETY PRECAUTIONS IN PLACE: BED IN LOWEST, LOCKED POSITION, SIDERAILS UPx2, AND BRAKES ON. BED ALARM ON, TABLE AND CALL LIGHT WITHIN REACH, WILL ENDORSE TO NEXT NURSE ON DUTY FOR CONTINUITY OF CARE.
[2022-01-23 06:36] LABS: UREA NITROGEN, BLOOD 94 mg/dL (7-18)
--- NOTE | 2022-01-23 07:40 | NUR ---
RN NOTE PT RECEIVED AWAKE IN BED, ALERT AND RESPONSIVE. ON O2 VIA NC @3L. PT IS SR. FLANAGAN IN PLACE DRAINING WELL. WITH IV ACCESS ON R AC G18. SAFETY MEASURES MAINTAINED.
[2022-01-23 08:00] VITALS: BP 112/44
[2022-01-23 08:11] LABS: PHOSPHORUS 5.4 mg/dL (2.5-4.9)
[2022-01-23 08:36] LABS: THYROID STIMULATING HORMONE 0.375 uIU/mL (0.358-3.74)
[2022-01-23] MEDS: ASPIRIN 81 MG TAB.CHEW PO SCH (08:41)
[2022-01-23] MEDS: GLIMEPIRIDE 1 MG TABLET PO SCH (08:42)
[2022-01-23] MEDS: LEVOTHYROXINE SODIUM 100 MCG TABLET PO SCH (08:42)
[2022-01-23] MEDS: PANTOPRAZOLE 40 MG TABLET.DR PO SCH (08:42)
[2022-01-23] MEDS: GABAPENTIN 300 MG CAPSULE PO SCH ×2 (08:42→17:23)
[2022-01-23] MEDS: BLOOD SUGAR DIAGNOSTIC 1 EACH STRIP IN SCH ×4 (08:43→21:41)
[2022-01-23] MEDS: TICAGRELOR 90 MG TABLET PO SCH ×2 (08:44→17:23)
[2022-01-23] MEDS: IPRATROPIUM/ALBUTEROL INHALER IH SCH ×3 (08:45→19:58)
[2022-01-23] MEDS: IV NS 0.9% 1,000 ML IV SCH ×2 (08:57→21:36)
[2022-01-23] MEDS: INSULIN REGULAR, HUMAN 100 UNIT/ML 3 ML VIAL SQ PRN ×2 (12:16→21:58)
[2022-01-23 16:00] VITALS: BP 112/44
--- NOTE | 2022-01-23 17:43 | NUR ---
DR. JARA NOTIFIED PT ALTERED AND DR. RANDOLPH AT BEDSIDE DISCUSSING POSSIBLE HD.
--- NOTE | 2022-01-23 17:44 | NUR ---
DR. JARA SPOKE WITH DR. TOMASA DURAN FOR NOW ,WILL CONTINUE TO MONITOR PATIENT.
--- NOTE | 2022-01-23 17:44 | NUR ---
SON UPDATED WITH PATIENT CONDITION.
--- NOTE | 2022-01-23 19:29 | NUR ---
RN NOTE PT RESTING IN BED, CONFUSED, DROWSY BUT IS RESPONSIVE TO STIMULI.PMD MADE AWARE, NO NEW ORDERS GIVEN. CONT ON O2 VIA NC @3L. PT IS SR. FLANAGAN IN PLACE DRAINING WELL. WITH IV ACCESS ON R AC G18. SAFETY MEASURES MAINTAINED.DUE MEDS GIVEN SAFETY MAINTAINED. AM/PM CARE RENDERED.
--- NOTE | 2022-01-23 19:40 | NUR ---
RECEIVED PT RESTING IN BED WITH HOB ELEVATED, AWAKE, AOX2 WITH EPISODE OF CONFUSION, ABLE TO VERBALIZE NEEDS, ON 3L O2 VIA NC, SATTING AT 96%, IV ACCESS IN RAC #18G INTACT, PATENT, INFUSING NS AT 75ML/HR. SAFETY PRECAUTIONS IN PLACE: BED IN LOWEST, LOCKED POSITION, SIDERAILS UPx2, AND BRAKES ON. BED ALARM ON, TABLE AND CALL LIGHT WITHIN REACH, WILL CONTINUE PLAN OF CARE.
[2022-01-23 21:05] LABS: CREATININE, URINE 97.4 MG/DL (30.0-125.0)
[2022-01-23 21:30] LABS: COLOR,URINE YELLOW (YELLOW)
[2022-01-23 21:31] LABS: UGLUCOSE NEGATIVE (NEGATIVE)
[2022-01-23 21:32] LABS: BILIRUBIN,URINE SMALL (NEGATIVE); NITRITE, URINE NEGATIVE (NEGATIVE); UROBILINOGEN,URINE 0.2 EU/dL (0.2)
[2022-01-23 21:33] LABS: LEUKOCYTE ESTERASE ,URINE MODERATE (NEGATIVE); PROTEIN,URINE 3+ mg/dl (NEGATIVE)
[2022-01-23 21:39] LABS: BACTERIA,URINE 4+ /HPF (None Seen); MUCUS,URINE Moderate /LPF (None Seen); RBC,URINE TOO NUMEROUS TO COUN /HPF (0-2); SQUAMOUS EPITHELIAL CELL,UR 0-2 /HPF (None Seen); TRIPLE PHOSPHATE CRYSTAL,UR Few /HPF (None Seen); WBC,URINE 51-80 /HPF (0-3)
[2022-01-23] MEDS: ATORVASTATIN 10 MG TABLET PO SCH (21:42)
[2022-01-24] VITALS: BP 137/64
[2022-01-24 06:22] LABS: CALCIUM, SERUM 7.8 mg/dL (8.5-10.1); CARBON DIOXIDE 23 mmol/L (21-32); CHLORIDE 96 mmol/L (98-107); CREATININE 3.8 mg/dL (0.6-1.3); GLUCOSE 109 mg/dL (74-106); POTASSIUM 3.8 mmol/L (3.5-5.1); SODIUM SERUM 131 mmol/L (136-145)
[2022-01-24 06:24] LABS: UREA NITROGEN, BLOOD 93 mg/dL (7-18)
[2022-01-24 06:31] LABS: BASOPHILS % (AUTO) 0.3 % (0.0-2.0); EOSINOPHILS % (AUTO) 1.2 % (0.0-6.0); HEMATOCRIT 26 % (33-45); HEMOGLOBIN 8.9 g/dL (11.5-14.8); LYMPHOCYTES # (AUTO) 0.5 K/uL (0.8-4.8); LYMPHOCYTES % (AUTO) 4.5 % (20.0-44.0); MEAN CORPUSCULAR HGB CONC 34 g/dl (31.0-36.0); MEAN CORPUSCULAR VOLUME 102 fL (82-100); MONOCYTES # (AUTO) 1.3 K/uL (0.1-1.30); NEUTROPHILS # (AUTO) 8.8 K/uL (1.8-8.9); PLATELET COUNT (AUTO) 152 K/uL (150-450); RED BLOOD CELL COUNT(AUTO) 2.57 MIL/uL (4.0-5.2); WHITE BLOOD COUNT (AUTO) 10.7 K/uL (4.3-11.0)
--- NOTE | 2022-01-24 06:37 | NUR ---
PT RESTING IN BED WITH HOB ELEVATED, ASLEEP, ASILY AWAKEN UPON CALLING HER NAME. AOX2 WITH EPISODE OF CONFUSION, ABLE TO VERBALIZE NEEDS, ON 3L O2 VIA NC, SATTING AT 96%, IV ACCESS IN RAC #18G INTACT, PATENT, INFUSING NS AT 75ML/HR. SAFETY PRECAUTIONS IN PLACE: BED IN LOWEST, LOCKED POSITION, SIDERAILS UPx2, AND BRAKES ON. BED ALARM ON, TABLE AND CALL LIGHT WITHIN REACH, WILL ENDORSE TO NEXT NURSE ON DUTY FOR CONTINUITY OF CARE.
[2022-01-24] MEDS: IPRATROPIUM/ALBUTEROL INHALER IH SCH (07:35)
--- NOTE | 2022-01-24 07:40 | NUR ---
RN NOTE PT RECEIVED AWAKE IN BED, ALERT AND RESPONSIVE. ON O2 VIA NC @3L. PT IS SR. FLANAGAN IN PLACE DRAINING WELL. WITH IV ACCESS ON R AC G18 WITH IVF NS @75CC/HR. SAFETY MEASURES MAINTAINED.
[2022-01-24 08:00] VITALS: BP 111/74
[2022-01-24] MEDS ORDERED: Medication Not On Formulary EA (Dulaglutide (Trulicity) 0.75 MG) SQ SCH ×2 (09:00→10:42)
[2022-01-24] MEDS: GLIMEPIRIDE 1 MG TABLET PO SCH (09:00)
[2022-01-24] MEDS ORDERED: CEPH250S PO (10:39)
[2022-01-24] MEDS ORDERED: ASPI-1169 PO (10:41)
[2022-01-24] MEDS ORDERED: METOPROLOL SUCCINATE 25 MG TAB.SR.24H PO SCH (11:00)
[2022-01-24] MEDS ORDERED: CEFTRIAXONE 1 G in IV D5W 50 ML IV SCH (11:00)
[2022-01-24] MEDS ORDERED: METO25TA3 PO (11:01)
[2022-01-24] MEDS ORDERED: METO25TA4 PO (11:02)
[2022-01-24] MEDS: ASPIRIN 81 MG TAB.CHEW PO SCH (11:12)
[2022-01-24] MEDS: GABAPENTIN 300 MG CAPSULE PO SCH (11:12)
[2022-01-24] MEDS: BLOOD SUGAR DIAGNOSTIC 1 EACH STRIP IN SCH ×2 (11:12→12:13)
[2022-01-24] MEDS: PANTOPRAZOLE 40 MG TABLET.DR PO SCH (11:12)
[2022-01-24] MEDS: LEVOTHYROXINE SODIUM 100 MCG TABLET PO SCH (11:12)
[2022-01-24] MEDS: TICAGRELOR 90 MG TABLET PO SCH (11:15)
[2022-01-24] MEDS: IV NS 0.9% 1,000 ML IV SCH (13:08)
[2022-01-24 16:00] VITALS: BP 137/64
--- NOTE | 2022-01-24 16:33 | NUR ---
RN NOTE PT D/C TO SNF. SPOKE WITH HOOD DUMAS OR REPORT AND LEANDER. V/S STABLE. NOT IN DISTRESS. IV ACCESS D/C.
== END 2022-01-24 16:28 | DRG 280 ==
LOC: ER 19:00 → TELE1 21:09 → MEDSG1 01-21 08:28
PROVIDERS: ADMIT Nurse Practitioner Acute Care; ATTEND Internal Medicine
DX: I13.0 Hypertensive heart and chronic kidney disease with heart failure and stage 1 through stage 4 chronic kidney disease, or unspecified chronic kidney disease (principal); I21.4 Non-ST elevation (NSTEMI) myocardial infarction; G92.8 Other toxic encephalopathy; I50.33 Acute on chronic diastolic (congestive) heart failure; N17.0 Acute kidney failure with tubular necrosis; U07.1 COVID-19; J96.01 Acute respiratory failure with hypoxia; I22.2 Subsequent non-ST elevation (NSTEMI) myocardial infarction; E87.1 Hypo-osmolality and hyponatremia; D68.59 Other primary thrombophilia; N18.4 Chronic kidney disease, stage 4 (severe); N13.6 Pyonephrosis; E87.0 Hyperosmolality and hypernatremia; E66.2 Morbid (severe) obesity with alveolar hypoventilation; J98.11 Atelectasis; I25.10 Atherosclerotic heart disease of native coronary artery without angina pectoris; E11.22 Type 2 diabetes mellitus with diabetic chronic kidney disease; Z90.49 Acquired absence of other specified parts of digestive tract; Z90.710 Acquired absence of both cervix and uterus; Z95.5 Presence of coronary angioplasty implant and graft; Z88.5 Allergy status to narcotic agent; Z88.8 Allergy status to other drugs, medicaments and biological substances; Z79.84 Long term (current) use of oral hypoglycemic drugs; Z79.899 Other long term (current) drug therapy; Z87.442 Personal history of urinary calculi; Z86.19 Personal history of other infectious and parasitic diseases; Z82.49 Family history of ischemic heart disease and other diseases of the circulatory system; E78.5 Hyperlipidemia, unspecified; D69.59 Other secondary thrombocytopenia; K74.60 Unspecified cirrhosis of liver; Z98.890 Other specified postprocedural states; I70.0 Atherosclerosis of aorta; E03.9 Hypothyroidism, unspecified
CPT/HCPCS: 36415; 36600; 71045-TC; 71250-TC; 76770-TC; 80048-TC; 80061-TC; 81001; 82570-TC; 82728-TC; 82803-TC; 82962-TC; 83516; 83735-TC; 83880; 84100-TC; 84300-TC; 84443-TC; 84484-TC; 85025-TC; 85378-TC; 85652-TC; 86140-TC; 87086-TC; 93307-TC; 94799-TC; A6253; C9803; G0378; J0696; J1644; J1815; J1940; J7030; J7060